=== PATIENT | female | born 1970 | race American Indian/Alaskan Native ===

== ENCOUNTER 2019-12-05 08:45 | Emergency (ER) | payer SELFPAY ==
--- NOTE | 2019-12-05 09:34 | XRay Report ---
CHEST 2 VIEWS INDICATION / CLINICAL INFORMATION: MAIN: Chest Pain . COMPARISON: 03/21/2015 FINDINGS: SUPPORT DEVICES: None. HEART / MEDIASTINUM: No significant abnormality. LUNGS / PLEURA: Interstitial markings in the right lung are slightly prominent. This could represent bronchitis. No focal area of consolidation or pleural effusion noted. Left lung is grossly clear.. Th e lungs are otherwise well aerated and clear. No pleural effusion or pneumothorax identified. No pneu mothorax. ADDITIONAL FINDINGS: Scoliosis of the thoracic spine is present. IMPRESSION: 1. Slight prominence of interstitial markings in the right lung which are nonspecific but could repre sent bronchitis. Please correlate clinically. No other significant finding. Signer Name: Natividad Savage MD Signed: 12/05/2019 9:29 AM Workstation Name: [id number]
[2019-12-05] MEDS ORDERED: IPRATROPIUM 0.02% NEBU 2.5 ML IH ONE (13:23)
[2019-12-05] MEDS ORDERED: ALBUTEROL 2.5 MG/3 ML NEBU IH ONE (13:23)
--- NOTE | 2019-12-05 13:30 | Emergency Department Report ---
ED General Adult HPI - General Chief complaint: Chest Pain Stated complaint: CHEST PAIN,STOMACH PAIN Time Seen by Provider: 12/05/19 13:03 Source: patient Mode of arrival: Ambulatory Limitations: No Limitations - History of Present Illness Initial comments: 49-year-old -[place]ammar[place] female patient with history of diabetes, hypertension, sarcoidosis, hyperlipidemia, and hypothyroidism presents with complaints of cough, chest tightness, shortness of breath, and malaise x 1 week. She states her cough is productive of yellow mucus. She states chest pain that occurs only with cough and states she had some specks of blood with coughing yesterday. She denies any history of DVT/PE, hormones, recent surgery, leg pain/swelling smoking, or history of cancer. She does admit to a 2-hour car drive 1 week ago. Patient states her symptoms started after she visited her aunt in a detention. She also admits to a fever yesterday of 104 that resolved with Tylenol. -: Gradual Severity scale (0 -10): 8 - Related Data Previous Rx's Medication Instructions Recorded Last Taken Type Albuterol INH(or & Nicu Only) 2 puff IH QID PRN #8.5 gram 12/05/19 Unknown Rx [ProAir HFA Inhaler] Benzonatate 200 mg PO TID PRN #30 capsule 12/05/19 Unknown Rx Doxycycline Monohydrate 100 mg PO BID 10 Days #20 capsule 12/05/19 Unknown Rx Allergies Allergy/AdvReac Type Severity Reaction Status Date / Time No Known Allergies Allergy Unverified 12/05/19 08:51 ED Review of Systems ROS: Stated complaint: CHEST PAIN,STOMACH PAIN Other details as noted in HPI Constitutional: chills, fever, malaise. denies: weakness ENT: denies: throat pain Respiratory: cough, shortness of breath. denies: SOB with exertion Cardiovascular: denies: chest pain Gastrointestinal: abdominal pain (Mild epigastric), diarrhea. denies: nausea, vomiting Genitourinary: denies: urgency, frequency, hematuria Neurological: denies: headache Hematological/Lymphatic: denies: easy bleeding, easy bruising ED Past Medical Hx - Past Medical History Previous Medical History?: Yes Hx Hypertension: Yes Hx Diabetes: Yes - Surgical History Past Surgical History?: Yes Additional Surgical History: partial hysterectomy 1992 - Social History Smoking Status: Unknown if ever smoked Substance Use Type: Alcohol - Medications Home Medications: Home Medications Medication Instructions Recorded Confirmed Last Taken Type Albuterol INH(or & Nicu Only) 2 puff IH QID PRN #8.5 gram 12/05/19 Unknown Rx [ProAir HFA Inhaler] Benzonatate 200 mg PO TID PRN #30 capsule 12/05/19 Unknown Rx Doxycycline Monohydrate 100 mg PO BID 10 Days #20 capsule 12/05/19 Unknown Rx ED Physical Exam - General Limitations: No Limitations General appearance: alert, in no apparent distress - Head Head exam: Present: atraumatic, normocephalic - Eye Eye exam: Present: normal appearance - ENT ENT exam: Present: mucous membranes moist - Neck Neck exam: Present: normal inspection, full ROM. Absent: tenderness, lymphadenopathy - Respiratory Respiratory exam: Present: wheezes, rhonchi. Absent: respiratory distress, rales, chest wall tenderness - Cardiovascular Cardiovascular Exam: Present: regular rate, normal rhythm. Absent: systolic murmur, diastolic murmur, rubs, gallop - GI/Abdominal GI/Abdominal exam: Present: soft, normal bowel sounds. Absent: distended, tenderness, guarding, rebound, rigid - Extremities Exam Extremities exam: Present: normal inspection. Absent: calf tenderness (No swelling or edema noted; normal pedal pulses noted bilaterally) - Back Exam Back exam: Present: normal inspection - Neurological Exam Neurological exam: Present: alert, oriented X3 - Psychiatric Psychiatric exam: Present: normal affect, normal mood - Skin Skin exam: Present: warm, dry, intact, normal color. Absent: rash ED Course Vital Signs 12/05/19 12/05/19 08:51 12:51 Temperature 98.6 F Pulse Rate 94 H Respiratory 20 15 Rate Blood Pressure 144/90 O2 Sat by Pulse 97 Oximetry ED Medical Decision Making - Lab Data Lab Results 12/05/19 12/05/19 Range/Units 13:00 13:00 WBC 3.5 L (4.5-11.0) K/mm3 RBC 4.51 (3.65-5.03) M/mm3 Hgb 13.9 (10.1-14.3) gm/dl Hct 40.4 (30.3-42.9) % MCV 90 (79-97) fl MCH 31 (28-32) pg MCHC 34 (30-34) % RDW 14.8 (13.2-15.2) % Plt Count 160 (140-440) K/mm3 Lymph % (Auto) 34.4 (13.4-35.0) % [place] % (Auto) 8.7 H (0.0-7.3) % Eos % (Auto) 1.6 (0.0-4.3) % Baso % (Auto) 1.2 (0.0-1.8) % Lymph # 1.2 (1.2-5.4) K/mm3 [place] # 0.3 (0.0-0.8) K/mm3 Eos # 0.1 (0.0-0.4) K/mm3 Baso # 0.0 (0.0-0.1) K/mm3 Seg Neutrophils % 54.1 (40.0-70.0) % Seg Neutrophils # 1.9 (1.8-7.7) K/mm3 Sodium 137 (137-145) mmol/L Potassium 3.2 L (3.6-5.0) mmol/L Chloride 94.8 L (98-107) mmol/L Carbon Dioxide 27 (22-30) mmol/L Anion Gap 18 mmol/L BUN 10 (7-17) mg/dL Creatinine 1.2 (0.7-1.2) mg/dL Estimated GFR 57 ml/min BUN/Creatinine Ratio 8 % Glucose 192 H (65-100) mg/dL Calcium 9.4 (8.4-10.2) mg/dL Total Bilirubin 0.40 (0.1-1.2) mg/dL AST 34 (5-40) units/L ALT 20 (7-56) units/L Alkaline Phosphatase 64 (35-129) units/L Troponin T < 0.010 (0.00-0.029) ng/mL Total Protein 8.0 (6.3-8.2) g/dL Albumin 4.4 (3.9-5) g/dL Albumin/Globulin Ratio 1.2 % - Radiology Data Radiology results: report reviewed CHEST 2 VIEWS INDICATION / CLINICAL INFORMATION: MAIN: Chest Pain . COMPARISON: 03/21/2015 FINDINGS: SUPPORT DEVICES: None. HEART / MEDIASTINUM: No significant abnormality. LUNGS / PLEURA: Interstitial markings in the right lung are slightly prominent. This could represent bronchitis. No focal area of consolidation or pleural effusion noted. Left lung is grossly clear.. The lungs are otherwise well aerated and clear. No pleural effusion or pneumothorax identified. No pneumothorax. ADDITIONAL FINDINGS: Scoliosis of the thoracic spine is present. IMPRESSION: 1. Slight prominence of interstitial markings in the right lung which are nonspecific but could represent bronchitis. Please correlate clinically. No other significant finding. - Medical Decision Making 49-year-old -[place]ammar[place] female patient with history of diabetes, hypertension, sarcoidosis, hyperlipidemia, and hypothyroidism presents with complaints of cough, chest tightness, shortness of breath, and malaise x 1 week. Patient is afebrile and non-tachycardic with a normal pulse ox. CBC shows normal white count. Troponin is normal. EKG is normal. Chest x-ray shows increased interstitial markings in the right lung that may represent bronchitis. Patient is noted to have wheezing and diffuse rhonchi bilaterally on exam. Patient's symptoms and presentation are consistent with chest x-ray findings of bronchitis. Wheezing improved after hour-long nebulizer treatment. Patient is nontoxic-appearing and stable for discharge home. Prescription for doxycycline. Recommend follow-up with primary care provider within 3 to 5 days. Discussed strict return precautions in detail with patient who verbalizes understanding. Critical care attestation.: If time is entered above; I have spent that time in minutes in the direct care of this critically ill patient, excluding procedure time. ED Disposition Clinical Impression: Acute bacterial bronchitis Disposition: DC-01 TO HOME OR SELFCARE Is pt being admited?: No Condition: Stable Instructions: Acute Bronchitis (ED) Prescriptions: Benzonatate 200 mg PO TID PRN #30 capsule PRN Reason: Cough Doxycycline Monohydrate 100 mg PO BID 10 Days #20 capsule Albuterol INH(or & Nicu Only) [ProAir HFA Inhaler] 2 puff IH QID PRN #8.5 gram PRN Reason: Wheezing Referrals: STEVE CHIRINOS MD [Primary Care Provider] - 3-5 Days
[2019-12-05 13:38] LABS: Basophils % (Auto) 1.2 % (0.0-1.8); Eosinophils # (Auto) 0.1 K/mm3 (0.0-0.4); Eosinophils % (Auto) 1.6 % (0.0-4.3); Hematocrit 40.4 % (30.3-42.9); Hemoglobin 13.9 gm/dl (10.1-14.3); Lymphocytes # (Auto) 1.2 K/mm3 (1.2-5.4); Lymphocytes % (Auto) 34.4 % (13.4-35.0); Mean Corpuscular HGB Conc 34 % (30-34); Mean Corpuscular Volume 90 fl (79-97); Monocytes # (Auto) 0.3 K/mm3 (0.0-0.8); Monocytes % (Auto) 8.7 % (0.0-7.3); Platelet Count 160 K/mm3 (140-440); Red Blood Count 4.51 M/mm3 (3.65-5.03); Red Cell Distribution Width 14.8 % (13.2-15.2)
[2019-12-05 14:05] LABS: Alanine Aminotransferase 20 units/L (7-56); Albumin 4.4 g/dL (3.9-5); BUN/Creatinine Ratio 8; Blood Urea Nitrogen 10 mg/dL (7-17); Calcium 9.4 mg/dL (8.4-10.2); Hemolysis Index 20
[2019-12-05 15:34] VITALS: BP 138/88
== END 2019-12-05 15:34 | disposition home or self-care (01) ==
LOC: EDSEX → ED 08:45
DX: J20.8 Acute bronchitis due to other specified organisms (principal); I10 Essential (primary) hypertension; E11.9 Type 2 diabetes mellitus without complications; Z90.710 Acquired absence of both cervix and uterus; Z79.899 Other long term (current) drug therapy
CPT/HCPCS: 36415; 71046; 80053; 84484; 85025; 93005; 93010; 94640; 94644

== ENCOUNTER 2020-07-04 05:04 | Observation (INO) | payer BC ==
--- NOTE | 2020-07-04 05:56 | XRay Report ---
CHEST 1 VIEW INDICATION: CP. COMPARISON: 04/12/2020. FINDINGS: Support devices: None. Heart: Stable cardiomegaly. Lungs/Pleura: Mild bilateral opacity. Additional findings: None. IMPRESSION: Cardiomegaly with mild bilateral opacity which may represent edema. Signer Name: Wayne Mcnamara MD Signed: 07/04/2020 5:52 AM Workstation Name: [id number]
[2020-07-04 06:15] LABS: Basophils % (Auto) 0.4 % (0.0-1.8); Eosinophils # (Auto) 0.1 K/mm3 (0.0-0.4); Eosinophils % (Auto) 0.8 % (0.0-4.3); Hematocrit 39.2 % (30.3-42.9); Hemoglobin 12.7 gm/dl (10.1-14.3); Lymphocytes # (Auto) 1.8 K/mm3 (1.2-5.4); Mean Corpuscular HGB Conc 33 % (30-34); Mean Corpuscular Volume 93 fl (79-97); Monocytes # (Auto) 0.4 K/mm3 (0.0-0.8); Platelet Count 228 K/mm3 (140-440); Red Blood Count 4.22 M/mm3 (3.65-5.03); Red Cell Distribution Width 15.1 % (13.2-15.2)
[2020-07-04 06:27] LABS: Alanine Aminotransferase 16 units/L (7-56); Albumin 3.8 g/dL (3.9-5); BUN/Creatinine Ratio 21; Blood Urea Nitrogen 17 mg/dL (7-17); Calcium 8.9 mg/dL (8.4-10.2); Hemolysis Index 5
[2020-07-04] MEDS ORDERED: FUROSEMIDE 40 MG/4 ML INJ IV ONE (06:29)
--- NOTE | 2020-07-04 06:34 | Emergency Department Report ---
ED Shortness of Breath HPI - General Chief Complaint: Dyspnea/Respdistress Stated Complaint: YANCI Time Seen by Provider: 07/04/20 06:14 Source: patient, EMS, old records reviewed Mode of arrival: Stretcher Limitations: No Limitations - History of Present Illness Initial Comments: 50-year-old female the past medical history sarcoidosis, nonischemic cardio myopathy with a EF of 25 to 30%, diabetes, hypertension presents to the hospital complaints sudden onset of shortness of breath while sleeping at 1:30 AM. Patient has room air saturation 89% which improved to 100% on nonrebreather and patient reports feeling better with oxygen. Patient also reports intermittent wheezing with increased albuterol inhaler use. No chest pain reported or leg edema reported. Patient having a cough occasionally productive of sputum. She denies leg edema or calf tenderness. Patient is compliant with her medications was restarted on metoprolol. Patient does not have her list of medications but does think that she takes a diuretic. Patient denies increased salt or fluid intake. No reports of fever. side panel padder Dr. Carranza, PMD Dr. Rios Previous medical record review patient was admitted here for CHF exacerbation in March 2020. Had a cardiac cath during that admission showing EF of 25 to 30% and no coronary artery stenosis. - Related Data Home Medications Medication Instructions Recorded Confirmed Last Taken Glimepiride [Amaryl] 4 mg PO BID 04/13/20 04/13/20 Unknown Ibuprofen [Motrin 800 MG tab] 800 mg PO TID PRN 04/13/20 04/13/20 Unknown Levothyroxine [Synthroid] 88 mcg PO QAM 04/13/20 04/13/20 Unknown Lovastatin 200 mg PO HS 04/13/20 04/13/20 Unknown Meloxicam [Mobic] 7.5 mg PO DAILY 04/13/20 04/13/20 Unknown hydroCHLOROthiazide 12.5 mg PO DAILY 04/13/20 04/13/20 Unknown [Hydrochlorothiazide] lisinopriL [Zestril] 20 mg PO QDAY 04/13/20 04/13/20 Unknown metFORMIN [Glucophage] 500 mg PO BID 04/13/20 04/13/20 Unknown methOCARBAMOL [Robaxin TAB] 750 mg PO TID 04/13/20 04/13/20 Unknown Previous Rx's Medication Instructions Recorded Last Taken Type Albuterol Mdi (or & Nicu Only) 2 puff IH QID PRN #8.5 gram 12/05/19 Unknown Rx [ProAir HFA Inhaler] Benzonatate 200 mg PO TID PRN #30 capsule 12/05/19 Unknown Rx Doxycycline Monohydrate 100 mg PO BID 10 Days #20 capsule 12/05/19 Unknown Rx Famotidine [Pepcid] 20 mg PO BID 7 Days #14 tablet 12/05/19 Unknown Rx levoFLOXacin [Levaquin TAB] 500 mg PO QDAY #5 tablet 04/17/20 Unknown Rx Allergies Allergy/AdvReac Type Severity Reaction Status Date / Time No Known Allergies Allergy Verified 04/12/20 10:17 ED Review of Systems ROS: Stated complaint: YANCI Other details as noted in HPI Comment: All other systems reviewed and negative ED Past Medical Hx - Past Medical History Previous Medical History?: Yes Hx Hypertension: Yes Hx Congestive Heart Failure: Yes Hx Diabetes: Yes Additional medical history: Sarcoidosis - Surgical History Past Surgical History?: Yes Additional Surgical History: partial hysterectomy 1992 - Social History Smoking Status: Never Smoker - Medications Home Medications: Home Medications Medication Instructions Recorded Confirmed Last Taken Type Albuterol Mdi (or & Nicu Only) 2 puff IH QID PRN #8.5 gram 12/05/19 04/13/20 Unknown Rx [ProAir HFA Inhaler] Benzonatate 200 mg PO TID PRN #30 capsule 12/05/19 04/13/20 Unknown Rx Doxycycline Monohydrate 100 mg PO BID 10 Days #20 capsule 12/05/19 04/13/20 Unknown Rx Famotidine [Pepcid] 20 mg PO BID 7 Days #14 tablet 12/05/19 04/13/20 Unknown Rx Glimepiride [Amaryl] 4 mg PO BID 04/13/20 04/13/20 Unknown History Ibuprofen [Motrin 800 MG tab] 800 mg PO TID PRN 04/13/20 04/13/20 Unknown History Levothyroxine [Synthroid] 88 mcg PO QAM 04/13/20 04/13/20 Unknown History Lovastatin 200 mg PO HS 04/13/20 04/13/20 Unknown History Meloxicam [Mobic] 7.5 mg PO DAILY 04/13/20 04/13/20 Unknown History hydroCHLOROthiazide 12.5 mg PO DAILY 04/13/20 04/13/20 Unknown History [Hydrochlorothiazide] lisinopriL [Zestril] 20 mg PO QDAY 04/13/20 04/13/20 Unknown History metFORMIN [Glucophage] 500 mg PO BID 04/13/20 04/13/20 Unknown History methOCARBAMOL [Robaxin TAB] 750 mg PO TID 04/13/20 04/13/20 Unknown History levoFLOXacin [Levaquin TAB] 500 mg PO QDAY #5 tablet 04/17/20 Unknown Rx ED Physical Exam - General Limitations: No Limitations - Other Other exam information: General: No acute distress Head: Atraumatic Eyes: normal appearance ENT: Moist mucous membranes Neck: Normal appearance, no midline tenderness Chest: Bilateral crackles, breathing comfortably on nonrebreather CV: Regular rate and rhythm Abdomen: Soft, normal bowel sounds, nontender, nondistended, no rebound or guarding Back: Normal inspection Extremity: Normal inspection, full range of motion, no calf tenderness or leg edema Neuro: Alert O x 3, no facial asymmetry, speech clear, no gross motor sensory deficit Psych: Appropriate behavior Skin: No rash ED Course Vital Signs 07/04/20 07/04/20 05:26 06:05 Temperature 97.6 F Pulse Rate 114 H Respiratory 24 24 Rate Blood Pressure 177/98 [Right] O2 Sat by Pulse 100 100 Oximetry ED Medical Decision Making - Lab Data Result diagrams: 07/04/20 05:42 07/04/20 05:42 Lab Results 07/04/20 07/04/20 Range/Units 05:42 05:42 WBC 7.7 (4.5-11.0) K/mm3 RBC 4.22 (3.65-5.03) M/mm3 Hgb 12.7 (10.1-14.3) gm/dl Hct 39.2 (30.3-42.9) % MCV 93 (79-97) fl MCH 30 (28-32) pg MCHC 33 (30-34) % RDW 15.1 (13.2-15.2) % Plt Count 228 (140-440) K/mm3 Lymph % (Auto) 23.0 (13.4-35.0) % [place] % (Auto) 5.0 (0.0-7.3) % Eos % (Auto) 0.8 (0.0-4.3) % Baso % (Auto) 0.4 (0.0-1.8) % Lymph # 1.8 (1.2-5.4) K/mm3 [place] # 0.4 (0.0-0.8) K/mm3 Eos # 0.1 (0.0-0.4) K/mm3 Baso # 0.0 (0.0-0.1) K/mm3 Seg Neutrophils % 70.8 H (40.0-70.0) % Seg Neutrophils # 5.4 (1.8-7.7) K/mm3 Sodium 140 (137-145) mmol/L Potassium 4.0 (3.6-5.0) mmol/L Chloride 103.1 (98-107) mmol/L Carbon Dioxide 23 (22-30) mmol/L Anion Gap 18 mmol/L BUN 17 (7-17) mg/dL Creatinine 0.8 (0.6-1.2) mg/dL Estimated GFR > 60 ml/min BUN/Creatinine Ratio 21 % Glucose 246 H (65-100) mg/dL Calcium 8.9 (8.4-10.2) mg/dL Total Bilirubin 0.20 (0.1-1.2) mg/dL AST 21 (5-40) units/L ALT 16 (7-56) units/L Alkaline Phosphatase 67 (35-129) units/L Troponin T < 0.010 (0.00-0.029) ng/mL NT-Pro-B Natriuret Pep 1978 H (0-900) pg/mL Total Protein 6.8 (6.3-8.2) g/dL Albumin 3.8 L (3.9-5) g/dL Albumin/Globulin Ratio 1.3 % - EKG Data -: EKG Interpreted by Ms EKG shows normal: sinus rhythm, ST-T waves (No STEMI) Rate: tachycardia (107) - EKG Data When compared to previous EKG there are: no significant change - Radiology Data Radiology results: report reviewed CHEST 1 VIEW INDICATION: CP. COMPARISON: 04/12/2020. FINDINGS: Support devices: None. Heart: Stable cardiomegaly. Lungs/Pleura: Mild bilateral opacity. Additional findings: None. IMPRESSION: Cardiomegaly with mild bilateral opacity which may represent edema. - Medical Decision Making Patient presents to the hospital with CHF exacerbation due to unknown cause. Patient received IV Lasix. She does not endorse chest pain. No ischemic or acute findings on EKG. Troponin negative. Patient will be admitted to the hospitalist service with cardiology consultation Critical Care Time: No Critical care attestation.: If time is entered above; I have spent that time in minutes in the direct care of this critically ill patient, excluding procedure time. ED Disposition Clinical Impression: CHF exacerbation, Hypoxia, Nonischemic cardiomyopathy Disposition: OP ADMIT IP TO THIS HOSP Is pt being admited?: Yes Condition: Stable Time of Disposition: 07:11 (Dr barrera/hospitalist)
[2020-07-04] MEDS ORDERED: ALBUTEROL 2.5 MG/3 ML NEBU IH PRN (07:41)
[2020-07-04] MEDS ORDERED: POTASSIUM CHLORIDE ER 20 MEQ TAB PO ONE (08:00)
--- NOTE | 2020-07-04 08:25 | History and Physical Report ---
History of Present Illness Date of examination: 07/04/20 Date of admission: 07/04/20 07:13 Chief complaint: dyspnea History of present illness: This is a 51-year-old female with sarcoidosis, nonischemic cardiomyopathy with a EF of 25 to 30%, DM, HTN, GERD, and hypothyroidism who presents to the emergency department with complaints of sudden onset of shortness of breath while sleeping at 0130. She experienced intermittent wheezing and used her albuterol inhaler w ith no improvement. 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 In the emergency department her SPO2 on room air was 89% which improved to 100% with a nonrebreather. She reports compliance with her medications. At the time of my exam the patient was on an Ventimask. She reports having coughed 3 times with EMS with white phlegm. She denies any fevers, nausea or vomiting or diarrhea, recent weight loss, hemoptysis, night sweats, or chills. She does report generalized fatigue and decreased energy over the past couple months. She denies any recent travel, sick contacts, or exposure to known COVID-19. Patient states she was recently tested negative for COVID-19 in March 2020 during her last admission. Of note she had a left heart cath 04/17 which showed normal coronaries without any evidence of CAD or stents with a EF of ~25% and is seen by Dr. Carranza outpatient. Work-up in the emergency department reveals cardiomegaly with bilateral mild opacity which may represent pulmonary edema, troponin less than 0.010 and an elevated BNP of 1978. In the emergency department she received 60 mg of Lasix which within subjective improvement in her symptoms. Cardiology was consulted in the emergency department she sees Dr. Carranza outpatient. She is being admitted to the hospitalist service for acute CH F exacerbation. Prior visits reviewed, medications reconciled, and advanced care planning was done the emergency department at bedside Past History Past Medical History: diabetes, GERD, heart failure, hypertension, hypothyroidism, sarcoidosis Past Surgical History: cholecystectomy (2010), hysterectomy (1995), Other ([facility] (2019)) Social history: single, lives with family, full code. denies: smoking, alcohol abuse, prescription drug abuse, IV drug use Family history: diabetes, stroke Medications and Allergies Allergies Allergy/AdvReac Type Severity Reaction Status Date / Time No Known Allergies Allergy Verified 04/12/20 10:17 Home Medications Medication Instructions Recorded Confirmed Last Taken Type Albuterol Mdi (or & Nicu Only) 2 puff IH QID PRN #8.5 gram 12/05/19 07/04/20 Unknown Rx [ProAir HFA Inhaler] Glimepiride [Amaryl] 4 mg PO BID 04/13/20 07/04/20 Unknown History Ibuprofen [Motrin 800 MG tab] 800 mg PO TID PRN 04/13/20 07/04/20 Unknown History Levothyroxine [Synthroid] 88 mcg PO QAM 04/13/20 07/04/20 Unknown History Lovastatin 200 mg PO HS 04/13/20 07/04/20 Unknown History hydroCHLOROthiazide 12.5 mg PO DAILY 04/13/20 07/04/20 Unknown History [Hydrochlorothiazide] metFORMIN [Glucophage] 500 mg PO BID 04/13/20 07/04/20 Unknown History methOCARBAMOL [Robaxin TAB] 750 mg PO TID 04/13/20 07/04/20 Unknown History Metoprolol [Lopressor] 25 mg PO DAILY 07/04/20 07/04/20 Unknown History Active Meds: Active Medications Albuterol (Proventil) 2.5 mg IH Q4HRT PRN PRN Reason: Shortness Of Breath Atorvastatin Calcium (Atorvastatin) 10 mg PO QHS [facility] Famotidine (Pepcid) 20 mg PO BID [facility] Furosemide (Lasix) 40 mg IV QDAY [facility] Levothyroxine Sodium (Synthroid) 88 mcg PO QAM@0600 [facility] Lisinopril (Zestril) 20 mg PO QDAY [facility] Review of Systems Constitutional: fatigue, no weight loss, no weight gain, no fever, no chills, no sweats, no night sweats, no anorexia, no weakness, no malaise, no lethargy, no chronic headaches Ears, nose, mouth and throat: nasal congestion, nasal discharge, post-nasal drip, no ear pain, no ear discharge, no tinnitis, no sinus pressure, no sinus pain, no epistaxis, no bleeding gums, no mouth pain, no sore throat, no headache Cardiovascular: orthopnea, palpitations, edema, shortness of breath, high blood pressure, no chest pain, no syncope, no lightheadedness, no leg edema Respiratory: cough with sputum, shortness of breath, congestion, wheezing, no hemoptysis Gastrointestinal: no abdominal pain, no nausea, no vomiting, no diarrhea, no constipation, no change in bowel habits, no hematemesis, no coffee ground emesis, no BRBPR, no melena, no hematochezia, no loss of appetite Genitourinary Female: hot flashes, no pelvic pain, no flank pain, no urinary frequency, no urgency, no stress incontinence, no post void dribbling, no hematuria Menstruation: post hysterectomy Rectal: no pain, no incontinence, no bleeding, no hemorrhoids Musculoskeletal: no neck stiffness, no neck pain, no shooting arm pain, no arm numbness/tingling, no low back pain, no shooting leg pain, no leg numbness/tingling, no redness of joints, no frequent falls Integumentary: no rash, no pruritis, no redness, no sores, no wounds Neurological: no head injury, no transient paralysis, no paralysis, no weakness, no parathesias, no numbness, no tingling, no seizures, no syncope, no tremors, no vertigo, no headaches, no convulsions Psychiatric: no anxiety, no memory loss, no change in sleep habits, no insomnia, no hypersomnia, no suicidal ideation Endocrine: heat intolerance, no cold intolerance, no excessive thirst, no polydipsia, no polyuria, no nocturia, no excessive sweating, no flushing, no weight change, no increase in ring/shoe/hat size, no high blood sugars Hematologic/Lymphatic: no easy bruising, no easy bleeding Allergic/Immunologic: wheezing, no urticaria, no allergic rhinitis, no persistent infections Exam - Constitutional Vitals: Temp Pulse Resp BP Pulse Ox 98.2 F 107 H 12 145/58 100 07/04/20 08:11 07/04/20 08:11 07/04/20 08:11 07/04/20 08:11 07/04/20 08:11 General appearance: Present: no acute distress, well-nourished - EENT Eyes: Present: PERRL, EOM intact ENT: hearing intact, clear oral mucosa - Neck Neck: Present: supple, normal ROM - Respiratory Respiratory effort: normal Respiratory: bilateral: other (crackles) - Cardiovascular Rhythm: regular Heart Sounds: Present: S1 & S2. Absent: systolic murmur, diastolic murmur - Extremities Extremities: no ischemia, pulses intact, pulses symmetrical, No edema, normal temperature, normal color, Full ROM Peripheral Pulses: within normal limits - Abdominal General gastrointestinal: Present: soft, non-tender, non-distended, normal bowel sounds - Integumentary Integumentary: Present: clear, warm, dry - Musculoskeletal Musculoskeletal: strength equal bilaterally - Psychiatric Psychiatric: appropriate mood/affect, memory intact, cooperative - Neurologic Neurologic: CNII-XII intact, no focal deficits, moves all extremities - Allied Health Allied health notes reviewed: nursing HEART Score - HEART Score History: Slightly suspicious EKG: Normal Age: 45-65 Risk factors: 1-2 risk factors Troponin: Troponin T < 0.010 ng/mL (0.00-0.029) 07/04/20 05:42 Troponin: < normal limit HEART Score: 2 Results - Labs CBC & Chem 7: 07/04/20 05:42 07/04/20 05:42 Labs: Laboratory Last Values WBC 7.7 K/mm3 (4.5-11.0) 07/04/20 05:42 RBC 4.22 M/mm3 (3.65-5.03) 07/04/20 05:42 Hgb 12.7 gm/dl (10.1-14.3) 07/04/20 05:42 Hct 39.2 % (30.3-42.9) 07/04/20 05:42 MCV 93 fl (79-97) 07/04/20 05:42 MCH 30 pg (28-32) 07/04/20 05:42 MCHC 33 % (30-34) 07/04/20 05:42 RDW 15.1 % (13.2-15.2) 07/04/20 05:42 Plt Count 228 K/mm3 (140-440) 07/04/20 05:42 Lymph % (Auto) 23.0 % (13.4-35.0) 07/04/20 05:42 [place] % (Auto) 5.0 % (0.0-7.3) 07/04/20 05:42 Eos % (Auto) 0.8 % (0.0-4.3) 07/04/20 05:42 Baso % (Auto) 0.4 % (0.0-1.8) 07/04/20 05:42 Lymph # 1.8 K/mm3 (1.2-5.4) 07/04/20 05:42 Bel[place]ami # 0.4 K/mm3 (0.0-0.8) 07/04/20 05:42 Eos # 0.1 K/mm3 (0.0-0.4) 07/04/20 05:42 Baso # 0.0 K/mm3 (0.0-0.1) 07/04/20 05:42 Seg Neutrophils % 70.8 % (40.0-70.0) H 07/04/20 05:42 Seg Neutrophils # 5.4 K/mm3 (1.8-7.7) 07/04/20 05:42 Sodium 140 mmol/L (137-145) 07/04/20 05:42 Potassium 4.0 mmol/L (3.6-5.0) 07/04/20 05:42 Chloride 103.1 mmol/L (98-107) 07/04/20 05:42 Carbon Dioxide 23 mmol/L (22-30) 07/04/20 05:42 Anion Gap 18 mmol/L 07/04/20 05:42 BUN 17 mg/dL (7-17) 07/04/20 05:42 Creatinine 0.8 mg/dL (0.6-1.2) 07/04/20 05:42 Estimated GFR > 60 ml/min 07/04/20 05:42 BUN/Creatinine Ratio 21 % 07/04/20 05:42 Glucose 246 mg/dL (65-100) H 07/04/20 05:42 Calcium 8.9 mg/dL (8.4-10.2) 07/04/20 05:42 Total Bilirubin 0.20 mg/dL (0.1-1.2) 07/04/20 05:42 AST 21 units/L (5-40) 07/04/20 05:42 ALT 16 units/L (7-56) 07/04/20 05:42 Alkaline Phosphatase 67 units/L (35-129) 07/04/20 05:42 Troponin T < 0.010 ng/mL (0.00-0.029) 07/04/20 05:42 NT-Pro-B Natriuret Pep 1978 pg/mL (0-900) H 07/04/20 05:42 Total Protein 6.8 g/dL (6.3-8.2) 07/04/20 05:42 Albumin 3.8 g/dL (3.9-5) L 07/04/20 05:42 Albumin/Globulin Ratio 1.3 % 07/04/20 05:42 - Imaging and Cardiology Chest x-ray: report reviewed, image reviewed - Diagnostic Impressions Diagnostic Impressions: 07/04 CXR shows cardiomegaly with mild bilateral opacity which may represent edema. Assessment and Plan VTE prophylaxis?: Chemical, Mechanical Plan of care discussed with patient/family: Yes - Patient Problems (1) Acute HFrEF (heart failure with reduced ejection fraction) Current Visit: Yes Status: Acute Plan to address problem: -07/04 CXR shows mild bilateral density which may be edema -Received 60 mg Lasix x1 in the emergency department -Admit BNP 1977 -Started on IV Lasix -Trend BMP and replete potassium as needed -Cardiology consulted -04/17/2020 left heart cath showed normal coronaries with no evidence of CAD and a EF of ~25% -03/2020 TTE showed EF of 25 to 30% with mild dilation of the left ventricle (2) Acute respiratory distress Current Visit: Yes Status: Acute Plan to address problem: -On presentation SPO2 89% on room air -Placed on nonrebreather in the emergency department now weaned to Ventimask -Supplemental oxygen as needed -Wean oxygenation as tolerated -Pulmonary hygiene -Continuous SPO2 monitoring (3) Diabetes Current Visit: Yes Status: Chronic Plan to address problem: -Hemoglobin A1c pending -CC cardiac diet -Started home antidiabetic regimen (metformin and Amaryl) -Accu-Cheks AC at bedtime -Hypoglycemia protocol (4) Hypertension Current Visit: Yes Status: Chronic Qualifiers: Hypertension type: essential hypertension Qualified Code(s): I10 - Essential (primary) hypertension Plan to address problem: -Blood pressure monitor per protocol -Restarted home lisinopril -PRN labetalol for systolic blood pressure greater than 160 (5) Sarcoidosis Current Visit: Yes Status: Chronic Plan to address problem: -Supportive care -Pulmonary consulted (6) GERD (gastroesophageal reflux disease) Current Visit: Yes Status: Chronic Plan to address problem: Restarted on home Pepcid (7) Hypothyroidism Current Visit: Yes Status: Chronic Plan to address problem: Restarted on home levothyroxine (8) DVT prophylaxis Current Visit: No Status: Acute Plan to address problem: -SCDs to bilateral lower extremities while in bed -Lovenox subcu (9) Full code status Current Visit: Yes Status: Acute
[2020-07-04] MEDS ORDERED: FUROSEMIDE 40 MG/4 ML INJ IV SCH (10:00)
[2020-07-04] MEDS ORDERED: LISINOPRIL 20 MG TAB PO SCH (10:00)
[2020-07-04] MEDS ORDERED: hydroCHLOROthiazide 12.5 MG CAP PO SCH (10:00)
[2020-07-04] MEDS: FAMOTIDINE 20 MG TAB PO SCH ×2 (10:14→21:38)
[2020-07-04] MEDS: LEVOTHYROXINE 88 MCG TAB PO SCH (10:14)
[2020-07-04] MEDS: metFORMIN 500 MG TAB PO SCH ×2 (10:14→17:40)
[2020-07-04] MEDS: GLIMEPIRIDE 4 MG TAB PO SCH ×2 (10:14→17:40)
--- NOTE | 2020-07-04 10:27 | Consultation ---
History of Present Illness Consult date: 07/04/20 Requesting physician: SALMA MONTELONGO Consult reason: congestive heart failure History of present illness: The pt is a 50 YO female with a past medical history of NICMP, HFrEF, reported pulmonary sarcoidosis, HTN, DM. She is followed in our office by Dr. Carranza. She presented with c/o sudden onset of shortness of breath while sleeping at 1:30 AM. Patient also reports intermittent wheezing with increased albuterol inhaler use for the past several days. She denies any chest pain, palpitations, edema, n/v, diaphoresis, dizziness or syncope. She reports compliance with her home medication regimen and HF diet. 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 Her PCP is Dr. Rios. tte done 03/2020 showed EF 25-30%, LV mildly dilated. LHC done 04/17/2020 showed normal coronaries, no CAD or prior stenting noted, EF ~25%. Past History Past Medical History: diabetes, GERD, heart failure, hypertension, hypothyroidism, sarcoidosis Past Surgical History: cholecystectomy (2010), hysterectomy (1995), Other ([facility] (2019)) Social history: single, lives with family, full code. denies: smoking, alcohol abuse, prescription drug abuse, IV drug use Family history: diabetes, stroke Medications and Allergies Allergies Allergy/AdvReac Type Severity Reaction Status Date / Time No Known Allergies Allergy Verified 04/12/20 10:17 Home Medications Medication Instructions Recorded Confirmed Last Taken Type Albuterol Mdi (or & Nicu Only) 2 puff IH QID PRN #8.5 gram 12/05/19 07/04/20 Unknown Rx [ProAir HFA Inhaler] Glimepiride [Amaryl] 4 mg PO BID 04/13/20 07/04/20 Unknown History Ibuprofen [Motrin 800 MG tab] 800 mg PO TID PRN 04/13/20 07/04/20 Unknown History Levothyroxine [Synthroid] 88 mcg PO QAM 04/13/20 07/04/20 Unknown History Lovastatin 200 mg PO HS 04/13/20 07/04/20 Unknown History hydroCHLOROthiazide 12.5 mg PO DAILY 04/13/20 07/04/20 Unknown History [Hydrochlorothiazide] metFORMIN [Glucophage] 500 mg PO BID 04/13/20 07/04/20 Unknown History methOCARBAMOL [Robaxin TAB] 750 mg PO TID 04/13/20 07/04/20 Unknown History Metoprolol [Lopressor] 25 mg PO DAILY 07/04/20 07/04/20 Unknown History Active Meds: Active Medications Albuterol (Proventil) 2.5 mg IH Q4HRT PRN PRN Reason: Shortness Of Breath Atorvastatin Calcium (Atorvastatin) 10 mg PO QHS [facility] Enoxaparin Sodium (Enoxaparin) 40 mg SUB-Q QDAY@2200 [facility]; Protocol Famotidine (Pepcid) 20 mg PO BID [facility] Last Admin: 07/04/20 10:14 Dose: 20 mg Documented by: Furosemide (Lasix) 40 mg IV QDAY [facility] Last Admin: 07/04/20 10:14 Dose: 40 mg Documented by: Glimepiride (Amaryl) 4 mg PO BIDDIAB [facility] Last Admin: 07/04/20 10:14 Dose: 4 mg Documented by: Labetalol HCl (Labetalol) 10 mg IV Q6HR PRN PRN Reason: Hypertension Levothyroxine Sodium (Synthroid) 88 mcg PO QAM@0600 [facility] Last Admin: 07/04/20 10:14 Dose: 88 mcg Documented by: Lisinopril (Zestril) 20 mg PO QDAY [facility] Last Admin: 07/04/20 10:15 Dose: 20 mg Documented by: Metformin HCl (Glucophage) 500 mg PO BIDDIAB [facility] Last Admin: 07/04/20 10:14 Dose: 500 mg Documented by: Oxycodone/Acetaminophen (Percocet 5/325) 1 tab PO Q6H PRN PRN Reason: Pain, Moderate (4-6) Review of Systems Constitutional: no weight loss, no weight gain, no fever, no chills, no sweats Ears, nose, mouth and throat: no ear pain, no nose pain, no sinus pressure, no sinus pain Cardiovascular: orthopnea, shortness of breath, dyspnea on exertion, no chest pain, no palpitations, no rapid/irregular heart beat, no edema, no syncope, no lightheadedness, no leg edema Respiratory: cough, shortness of breath, dyspnea on exertion, wheezing, no congestion, no pain on inspiration Gastrointestinal: no abdominal pain, no nausea, no vomiting, no diarrhea, no constipation, no change in bowel habits Genitourinary Female: no pelvic pain, no flank pain, no dysuria, no urinary frequency, no urgency Musculoskeletal: no neck stiffness, no neck pain, no shooting arm pain, no arm numbness/tingling, no low back pain, no shooting leg pain Integumentary: no rash, no pruritis, no redness, no sores, no wounds Neurological: no head injury, no paralysis, no weakness, no parathesias, no numbness, no tingling, no seizures, no syncope Psychiatric: no anxiety Endocrine: no cold intolerance, no heat intolerance Hematologic/Lymphatic: no easy bruising, no easy bleeding Allergic/Immunologic: no urticaria Physical Examination Vital Signs Temp Pulse Resp BP Pulse Ox 97.6 F 114 H 24 177/98 100 07/04/20 05:26 07/04/20 05:26 07/04/20 05:26 07/04/20 05:26 07/04/20 05:26 General appearance: no acute distress HEENT: Positive: PERRL, Normocephaly, Mucus Membranes Moist Neck: Positive: neck supple, trachea midline Cardiac: Positive: Reg Rate and Rhythm, S1/S2 Lungs: Positive: Decreased Breath Sounds, Oxygen Neuro: Positive: Grossly Intact Abdomen: Negative: Tender Skin: Negative: Rash Musculoskeletal: No Pain Extremities: Absent: edema Results 07/04/20 05:42 07/04/20 05:42 Cardiac Enzymes 07/04/20 Range/Units 05:42 AST 21 (5-40) units/L CBC 07/04/20 Range/Units 05:42 WBC 7.7 (4.5-11.0) K/mm3 RBC 4.22 (3.65-5.03) M/mm3 Hgb 12.7 (10.1-14.3) gm/dl Hct 39.2 (30.3-42.9) % Plt Count 228 (140-440) K/mm3 Lymph # 1.8 (1.2-5.4) K/mm3 Sebastian # 0.4 (0.0-0.8) K/mm3 Eos # 0.1 (0.0-0.4) K/mm3 Baso # 0.0 (0.0-0.1) K/mm3 Comprehensive Metabolic Panel 07/04/20 Range/Units 05:42 Sodium 140 (137-145) mmol/L Potassium 4.0 (3.6-5.0) mmol/L Chloride 103.1 (98-107) mmol/L Carbon Dioxide 23 (22-30) mmol/L BUN 17 (7-17) mg/dL Creatinine 0.8 (0.6-1.2) mg/dL Glucose 246 H (65-100) mg/dL Calcium 8.9 (8.4-10.2) mg/dL AST 21 (5-40) units/L ALT 16 (7-56) units/L Alkaline Phosphatase 67 (35-129) units/L Total Protein 6.8 (6.3-8.2) g/dL Albumin 3.8 L (3.9-5) g/dL - Imaging and Cardiology Echo: report reviewed (03/2020 showed EF 25-30%, LV mildly dilated. ) Cardiac cath: report reviewed (04/17/2020 showed normal coronaries, no CAD or prior stenting noted, EF ~25%. ) EKG: report reviewed, image reviewed EKG interpretations - Telemetry EKG Rhythm: Sinus Rhythm - EKG Sinus rhythms and dysrhythmias: sinus rhythm Repolarization changes or abnormalities: nonspecific abnormality, ST segment, and/or T wave Assessment and Plan Increase IV lasix to 40mg BID. Optimize HR - increase lopressor dosage to 50mg BID. Resume home losartan. Consider addition of aldactone if BPs permit. Pt reports h/o pulmonary sarcoidosis and increased wheezing over the past several days - recommend pulmonary consultation per primary team. Will follow. The patient has been seen in conjunction with Dr. Solano who agrees with the assessment and plan of care. - Patient Problems (1) Acute HFrEF (heart failure with reduced ejection fraction) Current Visit: Yes Status: Acute (2) Nonischemic cardiomyopathy Current Visit: Yes Status: Chronic (3) Pulmonary edema Current Visit: Yes Status: Acute (4) Hypertension Current Visit: Yes Status: Chronic Qualifiers: Hypertension type: essential hypertension Qualified Code(s): I10 - Essential (primary) hypertension (5) Diabetes Current Visit: Yes Status: Chronic (6) Hyperlipidemia Current Visit: Yes Status: Chronic (7) Sarcoidosis Current Visit: Yes Status: Chronic (8) Sinus tachycardia Current Visit: Yes Status: Acute
--- NOTE | 2020-07-04 12:19 | Consultation ---
History of Present Illness Consult date: 07/04/20 Requesting physician: JEFFERSON MORRIS Reason for consult: other (Sarcoidosis) History of present illness: PULMONARY/CCM CONSULT NOTE (Full dictation # [id number]) Please see dictated notes for full details Past History Past Medical History: diabetes, GERD, heart failure, hypertension, hypothyroidism, sarcoidosis Past Surgical History: cholecystectomy (2010), hysterectomy (1995), Other ([facility] (2019)) Social history: single, lives with family, full code. denies: smoking, alcohol abuse, prescription drug abuse, IV drug use Family history: diabetes, stroke Medications and Allergies Allergies Allergy/AdvReac Type Severity Reaction Status Date / Time No Known Allergies Allergy Verified 04/12/20 10:17 Home Medications Medication Instructions Recorded Confirmed Last Taken Type Albuterol Mdi (or & Nicu Only) 2 puff IH QID PRN #8.5 gram 12/05/19 07/04/20 Unknown Rx [ProAir HFA Inhaler] Glimepiride [Amaryl] 4 mg PO BID 04/13/20 07/04/20 Unknown History Ibuprofen [Motrin 800 MG tab] 800 mg PO TID PRN 04/13/20 07/04/20 Unknown History Levothyroxine [Synthroid] 88 mcg PO QAM 04/13/20 07/04/20 Unknown History Lovastatin 200 mg PO HS 04/13/20 07/04/20 Unknown History hydroCHLOROthiazide 12.5 mg PO DAILY 04/13/20 07/04/20 Unknown History [Hydrochlorothiazide] metFORMIN [Glucophage] 500 mg PO BID 04/13/20 07/04/20 Unknown History methOCARBAMOL [Robaxin TAB] 750 mg PO TID 04/13/20 07/04/20 Unknown History Metoprolol [Lopressor] 25 mg PO DAILY 07/04/20 07/04/20 Unknown History Active Meds: Active Medications Albuterol (Proventil) 2.5 mg IH Q4HRT PRN PRN Reason: Shortness Of Breath Atorvastatin Calcium (Atorvastatin) 10 mg PO QHS [facility] Enoxaparin Sodium (Enoxaparin) 40 mg SUB-Q QDAY@2200 [facility]; Protocol Famotidine (Pepcid) 20 mg PO BID [facility] Last Admin: 07/04/20 10:14 Dose: 20 mg Documented by: Furosemide (Lasix) 40 mg IV BID [facility] Glimepiride (Amaryl) 4 mg PO BIDDIAB [facility] Last Admin: 07/04/20 10:14 Dose: 4 mg Documented by: Labetalol HCl (Labetalol) 10 mg IV Q6HR PRN PRN Reason: Hypertension Levothyroxine Sodium (Synthroid) 88 mcg PO QAM@0600 [facility] Last Admin: 07/04/20 10:14 Dose: 88 mcg Documented by: Losartan Potassium (Cozaar) 25 mg PO QDAY [facility] Metformin HCl (Glucophage) 500 mg PO BIDDIAB [facility] Last Admin: 07/04/20 10:14 Dose: 500 mg Documented by: Metoprolol Tartrate (Metoprolol) 50 mg PO BID [facility] Oxycodone/Acetaminophen (Percocet 5/325) 1 tab PO Q6H PRN PRN Reason: Pain, Moderate (4-6) Physical Examination Vital signs: Vital Signs Temp Pulse Resp BP Pulse Ox 97.6 F 114 H 24 177/98 100 07/04/20 05:26 07/04/20 05:26 07/04/20 05:26 07/04/20 05:26 07/04/20 05:26 Results - Laboratory Findings CBC and BMP: 07/04/20 05:42 07/06/20 07:33 Abnormal lab findings: Abnormal Labs 07/04/20 07/04/20 07/04/20 05:42 05:42 05:42 Seg Neutrophils % 70.8 H Glucose 246 H POC Glucose Hemoglobin A1c 7.6 H NT-Pro-B Natriuret Pep 1978 H Albumin 3.8 L 07/04/20 07/04/20 09:15 11:49 Seg Neutrophils % Glucose POC Glucose 205 H 193 H Hemoglobin A1c NT-Pro-B Natriuret Pep Albumin
[2020-07-04] MEDS: METOPROLOL TARTRATE 25 MG TAB PO SCH ×2 (12:46→21:40)
[2020-07-04 12:55] LABS: BUN/Creatinine Ratio 20; Blood Urea Nitrogen 16 mg/dL (7-17); Calcium 9.3 mg/dL (8.4-10.2); Hemolysis Index 12
[2020-07-04] MEDS: FUROSEMIDE 40 MG/4 ML INJ IV SCH ×2 (17:41→21:35)
[2020-07-04] MEDS: oxyCODONE /ACETAMINOPHEN 5-325MG TAB PO PRN (18:30)
[2020-07-04] MEDS: ENOXAPARIN 40 MG/0.4 ML INJ SUB-Q SCH (21:38)
[2020-07-04] MEDS: ONDANSETRON 4 MG/2 ML INJ IV PRN (21:45)
[2020-07-05 06:06] LABS: BUN/Creatinine Ratio 22; Blood Urea Nitrogen 22 mg/dL (7-17); Calcium 8.6 mg/dL (8.4-10.2); Hemolysis Index 10
[2020-07-05] MEDS: LEVOTHYROXINE 88 MCG TAB PO SCH (06:38)
[2020-07-05] MEDS: ONDANSETRON 4 MG/2 ML INJ IV PRN ×2 (06:41→22:34)
[2020-07-05] MEDS: metFORMIN 500 MG TAB PO SCH ×2 (09:50→17:16)
[2020-07-05] MEDS: GLIMEPIRIDE 4 MG TAB PO SCH ×2 (09:50→17:16)
[2020-07-05] MEDS: FAMOTIDINE 20 MG TAB PO SCH ×2 (09:50→22:22)
[2020-07-05] MEDS: METOPROLOL TARTRATE 25 MG TAB PO SCH ×2 (09:51→22:21)
[2020-07-05] MEDS: FUROSEMIDE 40 MG/4 ML INJ IV SCH ×2 (09:52→22:21)
[2020-07-05] MEDS: LOSARTAN 25 MG TAB PO SCH (09:52)
[2020-07-05] MEDS ORDERED: METOCLOPRAMIDE 10 MG/2 ML INJ IV SCH (11:30)
--- NOTE | 2020-07-05 11:35 | Progress Note ---
Assessment and Plan - Patient Problems (1) Acute HFrEF (heart failure with reduced ejection fraction) Current Visit: Yes Status: Acute Plan to address problem: -07/04 CXR shows mild bilateral density which may be edema -Received 60 mg Lasix x1 in the emergency department -Admit BNP 1977 -Started on IV Lasix, increased to BID dosing on 07/04, on losartan -Trend BMP and replete potassium as needed -Cardiology consulted -04/17/2020 left heart cath showed normal coronaries with no evidence of CAD and a EF of ~25% -03/2020 TTE showed EF of 25 to 30% with mild dilation of the left ventricle -per cards: 07/05 patient is in SR HR 80s with transient episode of 2:1 AV block noted overnight, Cont present cardiac management and close observation on telemetry for another 24Hr. Can consider reduction/discontinuation of BB and EP consultation if AV block recurs. (2) Acute respiratory distress Current Visit: Yes Status: Acute Plan to address problem: -On presentation SPO2 89% on room air -Placed on nonrebreather in the emergency department now weaned to NC 2L -Supplemental oxygen as needed -Wean oxygenation as tolerated -Pulmonary hygiene -Continuous SPO2 monitoring (3) Diabetes Current Visit: Yes Status: Chronic Plan to address problem: -07/04 Hemoglobin A1c 7.6 -CC cardiac diet -Started home antidiabetic regimen (metformin and Amaryl) -Accu-Cheks AC at bedtime -Hypoglycemia protocol (4) Hypertension Current Visit: Yes Status: Chronic Qualifiers: Hypertension type: essential hypertension Qualified Code(s): I10 - Essential (primary) hypertension Plan to address problem: -Blood pressure monitor per protocol -On losartan and lopressor -PRN labetalol for systolic blood pressure greater than 160 (5) Sarcoidosis Current Visit: Yes Status: Chronic Plan to address problem: -Supportive care -Pulmonary consulted (6) GERD (gastroesophageal reflux disease) Current Visit: Yes Status: Chronic Plan to address problem: Restarted on home Pepcid (7) Hypothyroidism Current Visit: Yes Status: Chronic Plan to address problem: Restarted on home levothyroxine (8) DVT prophylaxis Current Visit: No Status: Acute Plan to address problem: -SCDs to bilateral lower extremities while in bed -Lovenox subcu History Interval history: This is a 51-year-old female with sarcoidosis, nonischemic cardiomyopathy with a EF of 25 to 30%, DM, HTN, GERD, and hypothyroidism who presents to the emergency department with complaints of sudden onset of shortness of breath while sleeping at 0130 on 07/04. She experienced intermittent wheezing and used her albuterol inhaler with no improvement. In the emergency department her SPO2 on room air was 89% which improved to 100% with a nonrebreather. Of note she had a left heart cath 04/17 which showed normal coronaries without any evidence of CAD or s tents with a EF of ~25% and is seen by Dr. Carranza outpatient. Work-up in the emergency department reveals cardiomegaly with bilateral mild opacity which may represent pulmonary edema, troponin less than 0.010 and an elevated BNP of 1978. In the emergency department she received 60 mg of Lasix which within subjective improvement in her symptoms. Cardiology was consulted in the emergency department and she was admitted to the hospitalist service for acute CHF exacerbation. 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 Even after being medicated with zofran, she still complains of nausea and a one time order of reglan given. 07/04: Pulmonary consult, IV Lasix 40mg BID and Lopressor 50mg BID Hospitalist Physical - Constitutional Vitals: Temp Pulse Resp BP Pulse Ox 97.9 F 78 18 132/82 99 07/05/20 07:43 07/05/20 09:52 07/05/20 07:43 07/05/20 09:52 07/05/20 07:58 General appearance: Present: no acute distress, well-nourished - EENT Eyes: Present: PERRL, EOM intact ENT: hearing intact, clear oral mucosa - Neck Neck: Present: supple - Respiratory Respiratory effort: normal Respiratory: bilateral: CTA - Cardiovascular Rhythm: regular Heart Sounds: Present: S1 & S2. Absent: systolic murmur, diastolic murmur - Extremities Extremities: no ischemia, pulses intact, pulses symmetrical, No edema, normal temperature, normal color, Full ROM - Abdominal General gastrointestinal: non-tender, non-distended, normal bowel sounds - Integumentary Integumentary: Present: clear, warm, dry - Psychiatric Psychiatric: cooperative - Neurologic Neurologic: CNII-XII intact, no focal deficits, moves all extremities - Allied Health Allied health notes reviewed: nursing HEART Score - HEART Score EKG: Normal Age: 45-65 Risk factors: 1-2 risk factors Troponin: Troponin T < 0.010 ng/mL (0.00-0.029) 07/04/20 05:42 Troponin: < normal limit Results - Labs CBC & Chem 7: 07/04/20 05:42 07/05/20 05:19 Labs: Laboratory Last Values WBC 7.7 K/mm3 (4.5-11.0) 07/04/20 05:42 RBC 4.22 M/mm3 (3.65-5.03) 07/04/20 05:42 Hgb 12.7 gm/dl (10.1-14.3) 07/04/20 05:42 Hct 39.2 % (30.3-42.9) 07/04/20 05:42 MCV 93 fl (79-97) 07/04/20 05:42 MCH 30 pg (28-32) 07/04/20 05:42 MCHC 33 % (30-34) 07/04/20 05:42 RDW 15.1 % (13.2-15.2) 07/04/20 05:42 Plt Count 228 K/mm3 (140-440) 07/04/20 05:42 Lymph % (Auto) 23.0 % (13.4-35.0) 07/04/20 05:42 Atlantic % (Auto) 5.0 % (0.0-7.3) 07/04/20 05:42 Eos % (Auto) 0.8 % (0.0-4.3) 07/04/20 05:42 Baso % (Auto) 0.4 % (0.0-1.8) 07/04/20 05:42 Lymph # 1.8 K/mm3 (1.2-5.4) 07/04/20 05:42 Atlantic # 0.4 K/mm3 (0.0-0.8) 07/04/20 05:42 Eos # 0.1 K/mm3 (0.0-0.4) 07/04/20 05:42 Baso # 0.0 K/mm3 (0.0-0.1) 07/04/20 05:42 Seg Neutrophils % 70.8 % (40.0-70.0) H 07/04/20 05:42 Seg Neutrophils # 5.4 K/mm3 (1.8-7.7) 07/04/20 05:42 ABG pH 7.430 (7.320-7.450) 07/04/20 Unknown POC ABG pCO2 45.7 mmHg (32.0-48.0) 07/04/20 Unknown POC ABG pO2 110.9 mmHg (83-108) H 07/04/20 Unknown POC ABG HCO3 29.7 07/04/20 Unknown POC ABG Base Excess 4.6 07/04/20 Unknown ABG Hemoglobin 14.2 (12.0-17.5) 07/04/20 Unknown FiO2 40.0 07/04/20 Unknown Sodium 137 mmol/L (137-145) 07/05/20 05:19 Potassium 4.0 mmol/L (3.6-5.0) 07/05/20 05:19 Chloride 97.5 mmol/L (98-107) L 07/05/20 05:19 Carbon Dioxide 25 mmol/L (22-30) 07/05/20 05:19 Anion Gap 19 mmol/L 07/05/20 05:19 BUN 22 mg/dL (7-17) H 07/05/20 05:19 Creatinine 1.0 mg/dL (0.6-1.2) 07/05/20 05:19 Estimated GFR > 60 ml/min 07/05/20 05:19 BUN/Creatinine Ratio 22 % 07/05/20 05:19 Glucose 203 mg/dL (65-100) H 07/05/20 05:19 POC Glucose 200 (70-105) H 07/05/20 07:56 Hemoglobin A1c 7.6 % (4-6) H 07/04/20 05:42 Calcium 8.6 mg/dL (8.4-10.2) 07/05/20 05:19 Magnesium 2.00 mg/dL (1.7-2.3) 07/05/20 09:22 Total Bilirubin 0.20 mg/dL (0.1-1.2) 07/04/20 05:42 AST 21 units/L (5-40) 07/04/20 05:42 ALT 16 units/L (7-56) 07/04/20 05:42 Alkaline Phosphatase 67 units/L (35-129) 07/04/20 05:42 Troponin T < 0.010 ng/mL (0.00-0.029) 07/04/20 05:42 NT-Pro-B Natriuret Pep 1978 pg/mL (0-900) H 07/04/20 05:42 Total Protein 6.8 g/dL (6.3-8.2) 07/04/20 05:42 Albumin 3.8 g/dL (3.9-5) L 07/04/20 05:42 Albumin/Globulin Ratio 1.3 % 07/04/20 05:42 Martinez/IV: Voiding Method Toilet IV Catheter Type [Right Hand] INT / Saline Lock Active Medications - Current Medications Current Medications: Generic Name Dose Route Start Last Admin Trade Name Freq PRN Reason Stop Dose Admin Albuterol 2.5 mg 07/04/20 07:41 Proventil IH Q4HRT PRN Shortness Of Breath Atorvastatin Calcium 10 mg 07/04/20 22:00 07/04/20 21:38 Atorvastatin PO 10 mg QHS KRISTEN Administration Enoxaparin Sodium 40 mg 07/04/20 22:00 07/04/20 21:38 Enoxaparin SUB-Q 40 mg QDAY@2200 KRISTEN Administration Protocol Famotidine 20 mg 07/04/20 10:00 07/05/20 09:50 Pepcid PO 20 mg BID KRISTEN Administration Furosemide 40 mg 07/04/20 18:00 07/05/20 09:52 Lasix IV 40 mg BID KRISTEN Administration Glimepiride 4 mg 07/04/20 10:00 07/05/20 09:50 Amaryl PO 4 mg BIDDIAB KRISTEN Administration Labetalol HCl 10 mg 07/04/20 09:01 Labetalol IV Q6HR PRN Hypertension Levothyroxine Sodium 88 mcg 07/04/20 10:00 07/05/20 06:38 Synthroid PO 88 mcg QAM@0600 KRISTEN Administration Losartan Potassium 25 mg 07/05/20 10:00 07/05/20 09:52 Cozaar PO 25 mg QDAY KRISTEN Administration Metformin HCl 500 mg 07/04/20 10:00 07/05/20 09:50 Glucophage PO 500 mg BIDDIAB KRISTEN Administration Metoclopramide HCl 10 mg 07/05/20 11:30 Reglan IV 07/05/20 15:00 ONCE KRISTEN Metoprolol Tartrate 50 mg 07/04/20 10:39 07/05/20 09:51 Metoprolol PO 50 mg BID KRISTEN Administration Ondansetron HCl 4 mg 07/04/20 21:22 07/05/20 06:41 Zofran IV 4 mg Q6H PRN Administration Nausea And Vomiting Oxycodone/Acetaminophen 1 tab 07/04/20 09:03 07/04/20 18:30 Percocet 5/325 PO 1 tab Q6H PRN Administration Pain, Moderate (4-6)
--- NOTE | 2020-07-05 11:56 | Progress Note ---
Assessment and Plan tele reviewed - in SR HR 80s with transient episode of 2:1 AV block noted overnight. Cont present cardiac management and close observation on telemetry for another 24Hr. Can consider reduction/discontinuation of BB and EP consultation if AV block recurs. Pulmonary w/u in progress. The patient has been seen in conjunction with Dr. Solano who agrees with the assessment and plan of care. - Patient Problems (1) Acute HFrEF (heart failure with reduced ejection fraction) Current Visit: Yes Status: Acute (2) Nonischemic cardiomyopathy Current Visit: Yes Status: Chronic (3) Pulmonary edema Current Visit: Yes Status: Acute (4) Hypertension Current Visit: Yes Status: Chronic Qualifiers: Hypertension type: essential hypertension Qualified Code(s): I10 - Essential (primary) hypertension (5) Diabetes Current Visit: Yes Status: Chronic (6) Hyperlipidemia Current Visit: Yes Status: Chronic (7) Sarcoidosis Current Visit: Yes Status: Chronic (8) Sinus tachycardia Current Visit: Yes Status: Resolved Subjective Date of service: 07/05/20 Principal diagnosis: HF Interval history: pt resting in bed, feeling better today. had some n/v overnight. tele reviewed - in SR HR 80s with transient episode of 2:1 AV block noted overnight. Objective Last Vital Signs Temp 98.2 F 07/05/20 11:40 Pulse 69 07/05/20 11:40 Resp 18 07/05/20 11:40 BP 130/82 07/05/20 11:40 Pulse Ox 93 07/05/20 11:40 - Physical Examination General: No Apparent Distress HEENT: Positive: PERRL, Normocephaly, Mucus Membranes Moist Neck: Positive: neck supple, trachea midline Cardiac: Positive: Reg Rate and Rhythm, S1/S2 Lungs: Positive: Decreased Breath Sounds Neuro: Positive: Grossly Intact Abdomen: Negative: Tender Skin: Negative: Rash Musculoskeletal: No Pain Extremities: Absent: edema - Labs and Meds Comprehensive Metabolic Panel 07/04/20 07/05/20 Range/Units 12:19 05:19 Sodium 140 137 (137-145) mmol/L Potassium 4.0 4.0 (3.6-5.0) mmol/L Chloride 97.2 L 97.5 L (98-107) mmol/L Carbon Dioxide 28 25 (22-30) mmol/L BUN 16 22 H (7-17) mg/dL Creatinine 0.8 1.0 (0.6-1.2) mg/dL Glucose 180 H 203 H (65-100) mg/dL Calcium 9.3 8.6 (8.4-10.2) mg/dL - Imaging and Cardiology EKG: report reviewed, image reviewed Echo: report reviewed (03/2020 showed EF 25-30%, LV mildly dilated. ) Cardiac cath: report reviewed (04/17/2020 showed normal coronaries, no CAD or prior stenting noted, EF ~25%. ) - EKG Sinus rhythms and dysrhythmias: sinus rhythm Repolarization changes or abnormalities: nonspecific abnormality, ST segment, and/or T wave
[2020-07-05] MEDS: oxyCODONE /ACETAMINOPHEN 5-325MG TAB PO PRN (18:47)
[2020-07-05] MEDS: ENOXAPARIN 40 MG/0.4 ML INJ SUB-Q SCH (22:21)
[2020-07-05] MEDS ORDERED: IBUPROFEN 600 MG TAB PO ONE (23:19)
[2020-07-06 01:55] LABS: Calcium 8.8 mg/dL (8.4-10.2)
[2020-07-06] MEDS: ONDANSETRON 4 MG/2 ML INJ IV PRN (05:52)
[2020-07-06] MEDS: LEVOTHYROXINE 88 MCG TAB PO SCH (05:52)
[2020-07-06 08:25] LABS: BUN/Creatinine Ratio 29; Blood Urea Nitrogen 32 mg/dL (7-17); Hemolysis Index 4
[2020-07-06] MEDS: INSULIN LISPRO 100 UNIT/ML VIAL 3 mL SUB-Q SCH ×3 (08:52→16:50)
[2020-07-06] MEDS: GLIMEPIRIDE 4 MG TAB PO SCH ×2 (08:52→16:50)
[2020-07-06] MEDS: metFORMIN 500 MG TAB PO SCH ×2 (08:52→16:49)
[2020-07-06] MEDS: METOPROLOL TARTRATE 25 MG TAB PO SCH (09:48)
[2020-07-06] MEDS: FAMOTIDINE 20 MG TAB PO SCH (09:49)
[2020-07-06] MEDS: LOSARTAN 25 MG TAB PO SCH (09:49)
[2020-07-06] MEDS: FUROSEMIDE 40 MG/4 ML INJ IV SCH (09:49)
--- NOTE | 2020-07-06 10:57 | Consultation ---
PULMONARY CONSULTATION NOTE CONSULTING PHYSICIAN: Remedios Johnston. REASON FOR CONSULTATION: Acute hypoxemic respiratory failure, history of sarcoidosis. CHIEF COMPLAINT AND HISTORY OF PRESENT ILLNESS: The patient is a 50-year-old -[place] female with past medical history according to her significant for a diagnosis of sarcoidosis, which she got in the 1980s, if I remember correctly and this was diagnosed out of [facility]. She moved into the region about 5 years ago. Since then, has not been seen by liner man and actually states she was never seen by a liner man. As far as she can remember, her sarcoidosis has been managed by her primary care physician. She also has a past medical history significant for congestive heart failure, ejection fraction 25-30%. She came to the Emergency Room complaining of sudden onset of shortness of breath essentially orthopnea. She had also complained of intermittent wheezing. She has a home albuterol inhaler. It did not improve her symptoms. She was trying to drive to the Emergency Room; however, had to stop on the road and called Emergency [facility]. She was hypoxemic, O2 sats according to the EMS service is 89% on room air. She was placed on a nonrebreather and brought into the ER. She denied any nausea, vomiting, fevers or chills. She denied any gross or streaky hemoptysis. She denied any contacts with the patients with known COVID-19 and recently had a negative COVID-19 test in 03/2020. 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 She mentions Dr. Carranza is the physician's name. She was evaluated in the Emergency Room, admitted to the medical floor. We are asked to assist with management in particular because of the history of sarcoidosis. As mentioned, she denies a history of bronchoscopy. She does not really know how her sarcoidosis was diagnosed. She denies any particularly significant problems with her vision or eyesight. She denies any history of significant liver disease. She denies any history of seizures, difficult to control headaches, any signs of significant extrapulmonary sarcoidosis. When I stopped by to see her, she was resting in bed, feeling better since she was given supplemental oxygen and since she was given some Lasix. I should mention, she denies significant leg pain or swelling either unilaterally or bilaterally or any suggestion of a deep venous thrombosis. This really is as much of the history of this presentation as I have. PAST MEDICAL HISTORY: There is a history of sarcoidosis, history of diabetes, congestive heart failure, gastroesophageal reflux disease, hypertension, hypothyroidism, sarcoidosis. She is also obese. PAST SURGICAL HISTORY: Cholecystectomy in 2010, hysterectomy in 1995. MEDICATIONS: She was on, at the time I stopped by to see her, were reviewed. Pertinent medications included the following: Albuterol nebulizer treatments 2.5 mg nebulized q. 4 hours p.r.n. shortness of breath, Lipitor 10 mg p.o. at bedtime, Lovenox 40 mg subcutaneous daily, Pepcid 20 mg p.o. b.i.d., Lasix 40 mg IV b.i.d., Amaryl 4 mg p.o. b.i.d., labetalol 10 mg IV q. 6 hours p.r.n. elevated blood pressures, Levoxyl 88 mcg p.o. daily, losartan 25 mg p.o. daily, metformin 500 mg p.o. b.i.d., metoprolol 50 mg p.o. b.i.d. and Percocet 5/325 mg 1 tablet p.o. q. 6 hours p.r.n. moderate pain. ALLERGIES: No known drug allergies. DIET: Obese lady. Denies acute weight loss or gain in the preceding few weeks to months. FAMILY AND SOCIAL HISTORY: Lives in the community. Denies alcohol, tobacco, or illicit drug use or abuse. Denies any significant remote tobacco smoking history. FAMILY HISTORY: Positive for diabetes and cerebrovascular accidents, otherwise. REVIEW OF SYSTEMS: No loss of consciousness. No new onset seizures. No new onset focal weakness. Denies gross hematochezia or melena. Denies gross hematuria or dysuria. Denies any history of nephrolithiasis. Denies any significant back, costovertebral angle pain. Denies heat or cold intolerance. Denies polydipsia or polyuria. Complete 13-system review of systems obtained. Pertinent positives and/or negatives as in body of history above, otherwise are noncontributory. PHYSICAL EXAMINATION: VITAL SIGNS: At presentation, she was afebrile, temperature 97.6 degrees Fahrenheit, pulse of 114, respiratory rate 24 per minute, described as short of breath and labored, blood pressure 177/98, O2 sats 100%, inspired oxygen concentration at that time was not recorded. When I stopped by to see her, her O2 sats were 98% that was on 2 liters nasal cannula at that time. GENERAL: She is a middle-aged obese lady, normocephalic, atraumatic, talking to me in mostly full sentences with mildly increased respiratory effort at rest. HEAD, EYES, EARS, NOSE AND THROAT: Anicteric. No conjunctival erythema. Oropharynx was moist. Mallampati #2 oropharynx. No gross jugular venous distention. No thyromegaly. She does have a large neck circumference. Grossly, no palpable lymph nodes in the supraclavicular or submandibular lymph node chains. LUNGS: Auscultation of both lung figueredo diminished/distant breath sounds, bibasilar inspiratory rales, no wheezing. HEART: Heart sounds 1 and 2 are heard, regular rate and rhythm at the time of my evaluation without overt rubs or murmurs. ABDOMEN: Soft, full, bowel sounds are positive, nontender. It is protuberant. No palpable hepatosplenomegaly. No costovertebral angle tenderness. EXTREMITIES: Without overt digital clubbing or cyanosis. No pedal edema. Pedal pulses were 2+ bilaterally. NEUROLOGIC: Pupils are equal, round, about 4 mm, reactive to light. Extraocular muscle movements were intact. She moves all 4 extremities spontaneously. SKIN: Normal turgor in the areas examined without overt cellulitis or rash. Please see the wound care nurse's notes for full description of her skin. PSYCHIATRIC: Mood was appropriate. Affect was normal. LABORATORY DATA: From my review are as follows: Admission white cell count 7700, hemoglobin 12.7, hematocrit 39.2, platelet count was 228. No manual differential. Arterial blood gas showed a pH of 7.43, pCO2 of 46, pO2 of 111, that was on 40% FiO2 at that time. Serum sodium 140, potassium 4.0, chloride 103, bicarbonate 23, BUN 17, creatinine 0.8, glucose 246. Hemoglobin A1c was 7.6. Liver function test within normal limits. BNP was elevated at 1978. Albumin was slightly reduced at 3.8. No microbiology studies for my review. A chest x-ray was done. I have reviewed the chest x-ray, it shows gross cardiomegaly, small bilateral pleural effusions, bilateral pulmonary infiltrates with some sparing of the APCs, all consistent with pulmonary edema in this particular clinical context. No gross pneumothorax. No gross bony fractures. Compared with an x-ray from 04/12. These changes are enhanced with increased infiltrates and effusions. ASSESSMENT: 1. Acute hypoxemic respiratory failure, presumably secondary to #2. 2. Acute congestive heart failure exacerbation. 3. History of sarcoidosis. 4. History of diabetes. 5. Hypertension. 6. Gastroesophageal reflux disease. 7. Obesity. 8. Hypothyroidism. 9. Hyperlipidemia. PLAN: I do feel that the major presentation here is, is all due to congestive heart failure exacerbation. I do agree with diuresis to try and improve the pulmonary edema. A Cardiology consultation will be at the behest of the attending physician. From a sarcoidosis standpoint, I have stressed the importance of followup with a liner man and to get a better understanding of her disease process. She does not remember having pulmonary function testing done or other intervention. It is really unclear where the diagnosis came from. She will be glad we followed up on the outpatient pulmonary clinic. She will also benefit from Sleep Clinic evaluation. I have urged continued tobacco abstinence. I have urged medication compliance. Glycemic control will be for target blood glucose less than about 180 mg/dL during this admission. There is no acute indication for systemic steroids from a sarcoidosis standpoint. She is appropriately on GI and has been placed on DVT prophylaxis. Flu and pneumonia vaccination will be addressed per protocol. If there is any worsening of her respiratory status, she will benefit from bilevel positive airway pressure ventilation therapy. Thank you very much for the consult. We will follow along and make further recommendations as picture progresses/becomes clearer. [facility]# [id number] [place]/CAROL ANN
[2020-07-06 12:02] VITALS: BP 112/73
--- NOTE | 2020-07-06 13:46 | Progress Note ---
Assessment and Plan 1) Acute HFrEF (heart failure with reduced ejection fraction) Current Visit: Yes Status: Acute Plan to address problem: -07/04 CXR shows mild bilateral density which may be edema -Received 60 mg Lasix x1 in the emergency department -Admit BNP 1977 -Started on IV Lasix, increased to BID dosing on 07/04, on losartan -Trend BMP and replete potassium as needed -04/17/2020 left heart cath showed normal coronaries with no evidence of CAD and a EF of ~25% -03/2020 TTE showed EF of 25 to 30% with mild dilation of the left ventricle -per cards: 07/05 patient is in SR HR 80s with transient episode of 2:1 AV block noted overnight, Cont present cardiac management (2) Acute respiratory distress Current Visit: Yes Status: Acute Plan to address problem: -On presentation SPO2 89% on room air -Supplemental oxygen as needed -Pulmonary hygiene -Home oxygen evalatuion prior to discharge (3) Diabetes Current Visit: Yes Status: Chronic Plan to address problem: -07/04 Hemoglobin A1c 7.6 (4) Hypertension Current Visit: Yes Status: Chronic Qualifiers: Hypertension type: essential hypertension Qualified Code(s): I10 - Essential (primary) hypertension Plan to address problem: -Blood pressure monitor per protocol -On losartan and lopressor -PRN labetalol for systolic blood pressure greater than 160 (5) Sarcoidosis Current Visit: Yes Status: Chronic Plan to address problem: -Supportive care -Outpatietn follow up (6) GERD (gastroesophageal reflux disease) Current Visit: Yes Status: Chronic Plan to address problem: Restarted on home Pepcid (7) Hypothyroidism Current Visit: Yes Status: Chronic Plan to address problem: (8) DVT prophylaxis Current Visit: No Status: Acute Plan to address problem: -SCDs to bilateral lower extremities while in bed -Lovenox subcu Subjective Date of service: 07/06/20 Principal diagnosis: HF Interval history: Follow up: Acute hypoxic respiratory failure: Sarcoidosis Seen and examined. Vitals, labs, medications, chart reviewed. No adverse overnight events. She is anxious because of the ongoing shortness s of breath, adn chest pain. States she was diagnosed with Sarcoidosis about 10 years ago, she is unsure if it was tissue diagnoses. She was initially treated with Avair( LABA/ICS). She does not remember every needing systemic steroids. I have explained to her and I also notified the hospitalist service, that the diagnosis of Sarcoidosis will be managed as an outpatient. The patient will fol low up with me on discharge . I will obtain her medical records from her former [facility] and based on those findings and PFTs etc., we can decide on a course of action. I Objective - Exam Narrative Exam: General appearance: Present: no acute distress, well-nourished - EENT Eyes: Present: PERRL, EOM intact ENT: hearing intact, clear oral mucosa - Neck Neck: Present: supple, normal ROM - Respiratory Respiratory effort: normal Respiratory: bilateral: other (crackles) - Cardiovascular Rhythm: regular Heart Sounds: Present: S1 & S2. Absent: systolic murmur, diastolic murmur - Extremities Extremities: no ischemia, pulses intact, pulses symmetrical, No edema, normal temperature, normal color, Full ROM Peripheral Pulses: within normal limits - Abdominal General gastrointestinal: Present: soft, non-tender, non-distended, normal bowel sounds - Integumentary Integumentary: Present: clear, warm, dry - Musculoskeletal Musculoskeletal: strength equal bilaterally - Psychiatric Psychiatric: appropriate mood/affect, memory intact, cooperative - Neurologic Neurologic: CNII-XII intact, no focal deficits, moves all extremities - Allied Health Allied health notes reviewed: nursing Vital Signs - 12hr 07/06/20 07/06/20 07/06/20 03:43 07:00 07:55 Temperature 98.7 F 99.0 F Pulse Rate 83 80 46 L Pulse Rate [ Left Radial] Pulse Rate [ Right Radial] Respiratory 18 18 Rate Blood Pressure 110/70 116/63 O2 Sat by Pulse 98 92 Oximetry 07/06/20 07/06/20 07/06/20 09:47 09:48 09:49 Temperature Pulse Rate 85 85 Pulse Rate [ Left Radial] Pulse Rate [ Right Radial] Respiratory Rate Blood Pressure 103/43 103/43 103/43 O2 Sat by Pulse Oximetry 07/06/20 07/06/20 10:00 12:00 Temperature 98.5 F Pulse Rate 75 Pulse Rate [ 63 Left Radial] Pulse Rate [ 63 Right Radial] Respiratory 20 18 Rate Blood Pressure 112/73 O2 Sat by Pulse 90 Oximetry CBC and BMP: 07/04/20 05:42 07/06/20 07:33 ABG, PT/INR, D-dimer: ABG ABG pH 7.430 (7.320-7.450) 07/04/20 Unknown POC ABG pCO2 45.7 mmHg (32.0-48.0) 07/04/20 Unknown POC ABG pO2 110.9 mmHg (83-108) H 07/04/20 Unknown POC ABG HCO3 29.7 07/04/20 Unknown Abnormal lab findings: Abnormal Labs 07/04/20 07/04/20 07/04/20 05:42 05:42 05:42 Seg Neutrophils % 70.8 H POC ABG pO2 Chloride BUN Glucose 246 H POC Glucose Hemoglobin A1c 7.6 H NT-Pro-B Natriuret Pep 1978 H Albumin 3.8 L Free T4 07/04/20 07/04/20 07/04/20 09:15 11:49 12:19 Seg Neutrophils % POC ABG pO2 Chloride 97.2 L BUN Glucose 180 H POC Glucose 205 H 193 H Hemoglobin A1c NT-Pro-B Natriuret Pep Albumin Free T4 07/04/20 07/04/20 07/05/20 16:08 Unknown 05:19 Seg Neutrophils % POC ABG pO2 110.9 H Chloride 97.5 L BUN 22 H Glucose 203 H POC Glucose 124 H Hemoglobin A1c NT-Pro-B Natriuret Pep Albumin Free T4 07/05/20 07/05/20 07/05/20 07:56 11:54 12:56 Seg Neutrophils % POC ABG pO2 Chloride BUN Glucose POC Glucose 200 H 241 H Hemoglobin A1c NT-Pro-B Natriuret Pep Albumin Free T4 1.58 H 07/05/20 07/05/20 07/06/20 16:31 22:09 00:59 Seg Neutrophils % POC ABG pO2 Chloride 95.7 L BUN 31 H Glucose 191 H POC Glucose 253 H 189 H Hemoglobin A1c NT-Pro-B Natriuret Pep Albumin Free T4 07/06/20 07/06/20 07/06/20 07:33 08:08 12:13 Seg Neutrophils % POC ABG pO2 Chloride 96.2 L BUN 32 H Glucose 162 H POC Glucose 149 H 264 H Hemoglobin A1c NT-Pro-B Natriuret Pep Albumin Free T4
--- NOTE | 2020-07-06 13:59 | Progress Note ---
Assessment and Plan tele reviewed - in SR HR 80s, no AVB noted overnight, 10 beat run NSVT noted around 6AM today, pt asymptomatic. Currently stable cardiac status. Cont present cardiac management. Pt may discharge from cardiology standpoint. At discharge, recommend PO lasix 40mg daily. Cont all other present cardiac management. Will plan to address for AICD candidacy as OP. Recommend pt follow up in our office with Dr. Carranza within 1-2 weeks ([phone]). Pt verbalizes understanding. The patient has been seen in conjunction with Dr. Solano who agrees with the assessment and plan of care. - Patient Problems (1) Acute HFrEF (heart failure with reduced ejection fraction) Current Visit: Yes Status: Acute (2) Nonischemic cardiomyopathy Current Visit: Yes Status: Chronic (3) Pulmonary edema Current Visit: Yes Status: Acute (4) Hypertension Current Visit: Yes Status: Chronic Qualifiers: Hypertension type: essential hypertension Qualified Code(s): I10 - Essential (primary) hypertension (5) Diabetes Current Visit: Yes Status: Chronic (6) Hyperlipidemia Current Visit: Yes Status: Chronic (7) Sarcoidosis Current Visit: Yes Status: Chronic (8) Sinus tachycardia Current Visit: Yes Status: Resolved Subjective Date of service: 07/06/20 Principal diagnosis: HF Interval history: pt resting in bed, feeling better today. tele reviewed - in SR HR 80s, no AVB noted overnight, 10 beat run NSVT noted around 6AM today, pt asymptomatic. Objective Last Vital Signs Temp 98.5 F 07/06/20 12:00 Pulse 96 H 07/06/20 13:46 Resp 18 07/06/20 12:00 BP 112/73 07/06/20 12:00 Pulse Ox 90 07/06/20 12:00 - Physical Examination General: No Apparent Distress HEENT: Positive: PERRL, Normocephaly, Mucus Membranes Moist Neck: Positive: neck supple, trachea midline Cardiac: Positive: Reg Rate and Rhythm, S1/S2 Lungs: Positive: Decreased Breath Sounds Neuro: Positive: Grossly Intact Abdomen: Negative: Tender Skin: Negative: Rash Musculoskeletal: No Pain Extremities: Absent: edema - Labs and Meds Comprehensive Metabolic Panel 07/06/20 07/06/20 Range/Units 00:59 07:33 Sodium 139 139 (137-145) mmol/L Potassium 3.8 4.1 (3.6-5.0) mmol/L Chloride 95.7 L 96.2 L (98-107) mmol/L Carbon Dioxide 24 28 (22-30) mmol/L BUN 31 H 32 H (7-17) mg/dL Creatinine 1.2 1.1 (0.6-1.2) mg/dL Glucose 191 H 162 H (65-100) mg/dL Calcium 8.8 9.0 (8.4-10.2) mg/dL - Imaging and Cardiology EKG: report reviewed, image reviewed Echo: report reviewed (03/2020 showed EF 25-30%, LV mildly dilated. ) Cardiac cath: report reviewed (04/17/2020 showed normal coronaries, no CAD or prior stenting noted, EF ~25%. ) - EKG Sinus rhythms and dysrhythmias: sinus rhythm Repolarization changes or abnormalities: nonspecific abnormality, ST segment, and/or T wave
--- NOTE | 2020-07-06 14:32 | Discharge Summary ---
Providers - Providers Date of Admission: 07/04/20 07:13 Date of discharge: 07/06/20 Attending physician: MICHELE BOOTHE 07/04/20 06:34 Consult to Physician [CONS] Urgent Comment: Consulting Provider: EFRAIN OROZCO Physician Instructions: Reason For Exam: chf exacerbation, nonischemic cardiomyopathy 07/04/20 11:21 Consult to Physician [CONS] Routine Comment: Consulting Provider: GUILLE PORTILLO Physician Instructions: Reason For Exam: Sarcoidosis Primary care physician: STEVE CHIRINOS Hospitalization Condition: Stable Pertinent studies: 07/04 CXR shows cardiomegaly with mild bilateral opacity which may represent edema. Hospital course: This is a 51-year-old female with sarcoidosis, nonischemic cardiomyopathy with a EF of 25 to 30%, DM, HTN, GERD, and hypothyroidism who presents to the emergency department with complaints of sudden onset of shortness of breath while sleeping at 0130 on 07/04. She experienced intermittent wheezing and used her albuterol inhaler with no improvement. In the emergency department her SPO2 on room air was 89% which improved to 100% with a nonrebreather. Of note she had a left heart cath 04/17 which showed normal coronaries without any evidence of CAD or stents with a EF of ~25% and is seen by Dr. Orozco outpatient. Work-up in the emergency department reveals cardiomegaly with bilateral mild opacity which may represent pulmonary edema, troponin less than 0.010 and an elevated BNP of 1978. In the emergency department she received 60 mg of Lasix which within subjective improvement in her symptoms. Cardiology was consulted in the emergency department and she was admitted to the hospitalist service for acute CHF exacerbation. On 07/04 a pulmonology consult was obtained for history of sarcoidosis with wheezing and she was given IV Lasix 40 mg twice daily with Lopressor 50 mg twice daily. Overnight she experienced transient AV block therefore her AV mona blocking agents were discontinued. On 07/05 she complained of some nausea and her Episodes of emesis however these are usually resolved with antiemetics and have not repeated throughout the course of the hospitalization. Overnight on 07/06 she had no AV block on reviewing her remote telemetry monitoring and had a 10 beat run of nonsustained V. tach around 6 AM however she was asymptomatic. Therefore she is currently stable for discharge from a cardiac standpoint. And she will be discharged with p.o. Lasix 40 mg/day, labetalol and losartan. It is recommended that she follows up with Dr. Orozco in his office within 1 to 2 weeks. Follow-up with your primary care physician within 1 to 2 weeks of discharge. It is recommend that you establish care with a linen worker within 1 to 2 weeks of discharge. Recommend pt follow up in our office with Dr. Orozco within 1-2 weeks ([phone]). - Patient Problems (1) Acute HFrEF (heart failure with reduced ejection fraction) Current Visit: Yes Status: Acute Plan to address problem: -07/04 CXR shows mild bilateral density which may be edema -Received 60 mg Lasix x1 in the emergency department -Admit BNP 1977 -Continue PO lasix 40mg daily, losartan, beta-leonardo -04/17/2020 left heart cath showed normal coronaries with no evidence of CAD and a EF of ~25% -03/2020 TTE showed EF of 25 to 30% with mild dilation of the left ventricle -Cardiology plans to address for AICD candidacy as outpatint; Recommend follow up with Dr. Orozco within 1-2 weeks ([phone]) (2) Acute respiratory distress Current Visit: Yes Status: Resolved Plan to address problem: -On presentation SPO2 89% on room air -Placed on nonrebreather in the emergency department weaned to NC 2L now weaned to room air (3) Diabetes Current Visit: Yes Status: Chronic Plan to address problem: -07/04 Hemoglobin A1c 7.6 -Continue carb controlled cardiac diet -Continue home antidiabetic regimen (metformin and Amaryl) -Accu-Cheks per primary care physician instructions (4) Hypertension Current Visit: Yes Status: Chronic Qualifiers: Hypertension type: essential hypertension Qualified Code(s): I10 - Essential (primary) hypertension Plan to address problem: -Blood pressure monitor per primary care physician instructions -Continue losartan, labetalol, Lasix (5) Sarcoidosis Current Visit: Yes Status: Chronic Plan to address problem: Follow-up with pulmonary outpatient (6) GERD (gastroesophageal reflux disease) Current Visit: Yes Status: Chronic Plan to address problem: Continue home Pepcid (7) Hypothyroidism Current Visit: Yes Status: Chronic Plan to address problem: Continue home levothyroxine (8) Elevated T4 Current Visit: No Status: chronic Plan to address problem: - 07/05 elevated T4: T4 1.58, TSH 2.8 - Follow-up with primary care physician to repeat thyroid studies Disposition: DC- TO HOME OR SELFCARE Time spent for discharge: 45 Core Measure Documentation - Palliative Care Palliative Care/ Comfort Measures: Not Applicable - Core Measures Any of the following diagnoses?: history only - Heart Failure Discharge Requirements YARELI/ARB for LVSD if EF <40%: Not Applicable Beta leonardo at discharge: Yes Exam - Constitutional Vitals: Temp Pulse Resp BP Pulse Ox 98.5 F 96 H 18 112/73 90 07/06/20 12:00 07/06/20 13:46 07/06/20 12:00 07/06/20 12:00 07/06/20 12:00 General appearance: Present: no acute distress - EENT Eyes: Present: PERRL, EOM intact ENT: hearing intact, clear oral mucosa, dentition normal - Neck Neck: Present: supple, normal ROM - Respiratory Respiratory effort: normal Respiratory: bilateral: CTA - Cardiovascular Rhythm: regular Heart Sounds: Present: S1 & S2. Absent: systolic murmur, diastolic murmur - Extremities Extremities: no ischemia, pulses intact, pulses symmetrical, No edema, normal temperature, normal color, Full ROM Peripheral Pulses: within normal limits - Abdominal General gastrointestinal: Present: soft, non-tender, non-distended, normal bowel sounds - Integumentary Integumentary: Present: clear, warm, dry - Musculoskeletal Musculoskeletal: strength equal bilaterally - Psychiatric Psychiatric: appropriate mood/affect, cooperative - Neurologic Neurologic: CNII-XII intact, no focal deficits, moves all extremities - Allied Health Allied health notes reviewed: nursing, social work, case management Plan Activity: advance as tolerated Diet: low fat, low cholesterol, low salt, diabetic Special Instructions: record daily BP diary, record blood sugar diary Additional Instructions: Present to the nearest emergency department or contact your primary care physician if you experience worsening symptoms. It is recommended that you follow-up with your primary care physician and cardiology within 1 to 2 weeks of discharge. You will be provided with a office number of the dental assistant medical assistant and you need to make an appointment to follow-up. It is recommended that you follow-up with pulmonology within 1 to 2 weeks of discharge for continued care for sarcoidosis. Follow up with: GUILLE PORTILLO MD [Staff Physician] - 7 Days STEVE CHIRINOS MD [Primary Care Provider] - 7 Days EFRAIN OROZCO MD [Staff Physician] - 7 Days Prescriptions: Glimepiride [Amaryl] 4 mg PO BID #60 tab Losartan [Cozaar] 25 mg PO QDAY #30 tablet metFORMIN [Glucophage] 500 mg PO BID #60 tab Furosemide [Lasix TAB] 40 mg PO QDAY #30 tablet Metoprolol [Lopressor TAB] 25 mg PO DAILY #30 tab Famotidine [Pepcid] 20 mg PO BID #60 tablet Albuterol Mdi (or & Nicu Only) [ProAir HFA Inhaler] 2 puff IH QID PRN #8.5 gram PRN Reason: Wheezing Levothyroxine [Synthroid] 88 mcg PO QAM #30 tab
== END 2020-07-06 19:00 | disposition home or self-care (01) ==
LOC: ED 05:04 → 4A 07:13
PROVIDERS: ADMIT Hospitalist; ATTEND Hospitalist
DX: I11.0 Hypertensive heart disease with heart failure (principal); I50.21 Acute systolic (congestive) heart failure; R06.03 Acute respiratory distress; I42.8 Other cardiomyopathies; E11.9 Type 2 diabetes mellitus without complications; R94.6 Abnormal results of thyroid function studies; R00.0 Tachycardia, unspecified; D86.9 Sarcoidosis, unspecified; E03.9 Hypothyroidism, unspecified; K21.9 Gastro-esophageal reflux disease without esophagitis; Z95.818 Presence of other cardiac implants and grafts; Z90.49 Acquired absence of other specified parts of digestive tract; Z90.710 Acquired absence of both cervix and uterus; Z79.84 Long term (current) use of oral hypoglycemic drugs; Z79.899 Other long term (current) drug therapy
CPT/HCPCS: 36415; 36600; 71045; 80048; 80053; 82805; 82962; 83036; 83735; 83880; 84439; 84443; 84484; 85025; 87116; 93005; 94760; 96372; 96374; 96375; 96376; 99285; A9270; G0378; J1650; J1940; J2405; J2765; 87641

== ENCOUNTER 2021-02-17 18:22 | Emergency (ER) | payer BC ==
--- NOTE | 2021-02-17 21:31 | Event Note ---
ED Screening Note Date of service: 02/17/21 Time: 21:30 ED Screening Note: 50-year-old female presents to the ER today for evaluation after fall off a ladder. Patient states that she was about 10 to 12 feet on a ladder trying to do something with the light bulb on her porch when she slipped and fell off the ladder. She states that she did hit her head and there was loss of consciousness. When she woke up she was surrounded by a pola and a lady. She is not sure of how long she had lost consciousness. Complains mainly of headache, facial pain and swelling. She states that she takes a baby aspirin every now in bed with no other blood thinners or antiplatelets. This initial assessment/diagnostic orders/clinical plan/treatment(s) is/are subject to change based on patients health status, clinical progression and re- assessment by fellow clinical providers in the ED. Further treatment and workup at subsequent clinical providers discretion. Patient/guardian urged not to elope from the ED as their condition may be serious if not clinically assessed and managed. Initial orders include: CT head, neck and face
[2021-02-17 21:58] LABS: Basophils # (Auto) 0.1 K/mm3 (0.0-0.1); Basophils % (Auto) 0.6 % (0.0-1.8); Eosinophils % (Auto) 0.1 % (0.0-4.3); Hematocrit 45.3 % (30.3-42.9); Lymphocytes # (Auto) 1.2 K/mm3 (1.2-5.4); Lymphocytes % (Auto) 12.4 % (13.4-35.0); Mean Corpuscular HGB Conc 33 % (30-34); Mean Corpuscular Volume 94 fl (79-97); Monocytes # (Auto) 0.4 K/mm3 (0.0-0.8); Monocytes % (Auto) 4.5 % (0.0-7.3); Platelet Count 228 K/mm3 (140-440); Red Blood Count 4.85 M/mm3 (3.65-5.03); Red Cell Distribution Width 14.9 % (13.2-15.2)
[2021-02-17] MEDS ORDERED: ONDANSETRON 4 MG/2 ML INJ IV ONE (22:12)
[2021-02-17] MEDS ORDERED: MORPHINE 4 MG/1 ML INJ IV ONE (22:12)
[2021-02-17] MEDS ORDERED: CLINDAMYCIN 600 MG/50 mL 600 MG/50 ML BAG IV ONE (22:12)
--- NOTE | 2021-02-17 22:15 | Emergency Department Report ---
ED General Adult HPI - General Chief complaint: Multiple Trauma Stated complaint: FELL OFF LADDER PUI?: No Time Seen by Provider: 02/17/21 22:03 Source: patient, RN notes reviewed, old records reviewed Limitations: Physical Limitation - History of Present Illness Initial comments: The patient was evaluated in the emergency department for symptoms described in the history of present illness. He/she was evaluated in the context of the global COVID-19 pandemic, which necessitated consideration that the patient might be at risk for infection with the virus that causes COVID-19. Institutional protocols and algorithms that pertain to the evaluation of patients at risk for COVID-19 are in a state of rapid change based on information released by regulatory bodies including the CDC and federal and state organizations. These policies and algorithms were followed during the patient's care in the emergency department. Please note that these policies, procedures and recommendations changed on a rapid basis. The patient is a 50-year-old female. She is not known to myself previously. Has a history of obesity, sarcoidosis, nonischemic cardiomyopathy, EF 25 to 30%, diabetes, hypertension, GERD, and hypothyroidism. She has an AICD in situ. She states that she does not take systemic anticoagulation. She presents to the ER after fall from a ladder. The patient states that she was in her usual state of health, when she fell from a ladder, approximately 6 feet. She thinks she hit her head on her jaw. She also believes she hit her right shoulder. The patient believes she lost consciousness after she fell. She complains of headache, left-sided jaw pain, right-sided shoulder pain, and lower back pain. She admits to consuming "a few wine coolers this evening." On primary survey: Airway is intact, patient phonating complete sentences. Obvious left-sided jaw fracture. Breath sounds: Clear to auscultation bilaterally. Circulation: 2+ pulses noted in the bilateral upper and lower extremities. Disability: GCS 15. Intoxicated. No cervical spine tenderness or step-offs. Exposure: No obvious blunt or penetrating injuries otherwise. Secondary survey: Open left-sided jaw fracture. Contusions noted to bilateral lower extremities. -: Sudden Location: head, mouth, back, right, upper extremity Radiation: non-radiation Quality: aching Consistency: intermittent Improves with: rest Worsens with: movement - Related Data Home Medications Medication Instructions Recorded Confirmed Last Taken Ibuprofen [Motrin 800 MG tab] 800 mg PO TID PRN 04/13/20 07/04/20 Unknown Lovastatin 200 mg PO HS 04/13/20 07/04/20 Unknown hydroCHLOROthiazide 12.5 mg PO DAILY 04/13/20 07/04/20 Unknown [Hydrochlorothiazide] methOCARBAMOL [Robaxin TAB] 750 mg PO TID 04/13/20 07/04/20 Unknown Previous Rx's Medication Instructions Recorded Last Taken Type Albuterol Mdi (or & Nicu Only) 2 puff IH QID PRN #8.5 gram 07/06/20 Unknown Rx [ProAir HFA Inhaler] Famotidine [Pepcid] 20 mg PO BID #60 tablet 07/06/20 Unknown Rx Furosemide [Lasix TAB] 40 mg PO QDAY #30 tablet 07/06/20 Unknown Rx Glimepiride [Amaryl] 4 mg PO BID #60 tab 07/06/20 Unknown Rx Levothyroxine [Synthroid] 88 mcg PO QAM #30 tab 07/06/20 Unknown Rx Losartan [Cozaar] 25 mg PO QDAY #30 tablet 07/06/20 Unknown Rx Metoprolol [Lopressor TAB] 25 mg PO DAILY #30 tab 07/06/20 Unknown Rx metFORMIN [Glucophage] 500 mg PO BID #60 tab 07/06/20 Unknown Rx oxyCODONE /ACETAMINOPHEN [Percocet 1 tab PO Q6H PRN tablet 07/06/20 Unknown Rx 5/325 mg] Allergies Allergy/AdvReac Type Severity Reaction Status Date / Time No Known Allergies Allergy Verified 04/12/20 10:17 ED Review of Systems ROS: Stated complaint: FELL OFF LADDER Other details as noted in HPI Constitutional: other (Denies loss of taste and smell). denies: fever Eyes: denies: eye discharge ENT: other (Left-sided jaw pain) Respiratory: shortness of breath (Chronic shortness of breath) Cardiovascular: syncope (Posttraumatic) Gastrointestinal: denies: abdominal pain, hematemesis, melena, hematochezia Musculoskeletal: back pain, joint swelling, arthralgia, myalgia Neurological: headache. denies: numbness Psychiatric: anxiety ED Past Medical Hx - Past Medical History Previous Medical History?: Yes Hx Hypertension: Yes Hx Congestive Heart Failure: Yes Hx Diabetes: Yes Additional medical history: Sarcoidosis - Surgical History Past Surgical History?: Yes Hx Internal Defibrillator: Yes Hx Cholecystectomy: Yes Additional Surgical History: partial hysterectomy 1992 - Social History Smoking Status: Never Smoker Substance Use Type: None - Medications Home Medications: Home Medications Medication Instructions Recorded Confirmed Last Taken Type Ibuprofen [Motrin 800 MG tab] 800 mg PO TID PRN 04/13/20 07/04/20 Unknown History Lovastatin 200 mg PO HS 04/13/20 07/04/20 Unknown History hydroCHLOROthiazide 12.5 mg PO DAILY 04/13/20 07/04/20 Unknown History [Hydrochlorothiazide] methOCARBAMOL [Robaxin TAB] 750 mg PO TID 04/13/20 07/04/20 Unknown History Albuterol Mdi (or & Nicu Only) 2 puff IH QID PRN #8.5 gram 07/06/20 Unknown Rx [ProAir HFA Inhaler] Famotidine [Pepcid] 20 mg PO BID #60 tablet 07/06/20 Unknown Rx Furosemide [Lasix TAB] 40 mg PO QDAY #30 tablet 07/06/20 Unknown Rx Glimepiride [Amaryl] 4 mg PO BID #60 tab 07/06/20 Unknown Rx Levothyroxine [Synthroid] 88 mcg PO QAM #30 tab 07/06/20 Unknown Rx Losartan [Cozaar] 25 mg PO QDAY #30 tablet 07/06/20 Unknown Rx Metoprolol [Lopressor TAB] 25 mg PO DAILY #30 tab 07/06/20 Unknown Rx metFORMIN [Glucophage] 500 mg PO BID #60 tab 07/06/20 Unknown Rx oxyCODONE /ACETAMINOPHEN [Percocet 1 tab PO Q6H PRN tablet 07/06/20 Unknown Rx 5/325 mg] ED Physical Exam - General Limitations: Physical Limitation General appearance: alert, appears intoxicated, obese - Head Head exam: Present: normocephalic, other (Forehead contusion noted) - Eye Eye exam: Present: normal appearance, PERRL, EOMI. Absent: nystagmus - ENT ENT exam: Present: mucous membranes moist, TM's normal bilaterally, normal external ear exam, other (There is no nasal septal hematoma. There is no hemotympanum. Patient phonating in complete sentences.). Absent: normal exam (Obvious left-sided lateral jaw swelling. Open jaw fracture noted on the buccal mucosa.) - Neck Neck exam: Present: normal inspection. Absent: tenderness, meningismus - Respiratory Respiratory exam: Present: normal lung sounds bilaterally. Absent: respiratory distress, wheezes, rales, rhonchi, stridor, decreased breath sounds - Cardiovascular Cardiovascular Exam: Present: normal rhythm, tachycardia, normal heart sounds. Absent: bradycardia, irregular rhythm, systolic murmur, diastolic murmur, rubs, gallop - GI/Abdominal GI/Abdominal exam: Present: soft. Absent: distended, tenderness, guarding, rebound, rigid, pulsatile mass - Extremities Exam Extremities exam: Present: full ROM, tenderness (There is right-sided shoulder tenderness), other (2+ pulses noted in the bilateral upper and lower extremities. There is no palpable cord. negative Homans sign. Muscular compartments are soft. The pelvis is stable.). Absent: normal inspection (Abrasions noted to bilateral lower extremities), calf tenderness - Back Exam Back exam: Present: normal inspection, paraspinal tenderness (Paralumbar tenderness). Absent: tenderness, CVA tenderness (R), CVA tenderness (L) - Neurological Exam Neurological exam: Present: alert, other (No facial droop. Tongue midline. Extraocular movements intact bilaterally. Facial sensation intact to light touch in V1, V2, V3 distribution bilaterally. 5 and a 5 strength in 4 extremities. Sensation intact to light touch in 4 extremities.) - Psychiatric Psychiatric exam: Present: anxious - Skin Skin exam: Present: warm, dry, intact, normal color. Absent: rash ED Course Vital Signs 02/17/21 02/17/21 02/17/21 21:06 23:37 23:38 Temperature 98.9 F 98.9 F Pulse Rate 112 H 104 H Respiratory 18 20 20 Rate Blood Pressure 177/100 Blood Pressure 142/96 [Right] O2 Sat by Pulse 99 99 99 Oximetry 02/18/21 02/18/21 00:21 00:32 Temperature 98.8 F Pulse Rate 100 H Respiratory 20 20 Rate Blood Pressure Blood Pressure 142/100 [Right] O2 Sat by Pulse 99 Oximetry - Reevaluation(s) Reevaluation #1: 02/17/21 22:39 Differential diagnosis, including but not limited to: Closed head injury, cervical spine injury, facial injury, mandibular fracture Alcohol intoxication Assessment and plan: 50-year-old female status post mechanical fall from a ladder. She is currently awake, alert, oriented, GCS of 15, and protecting her airway. She is hemodynamically stable at this time. Obtain CT scan of the brain, facial bones and cervical spine. Obtain appropriate laboratory studies. Obtain x-ray of the chest, x-ray of the pelvis, x-ray of the right shoulder. Start clindamycin for presumed open left-sided jaw fracture. Obtain cardiac EKG. Reassess after initial data points. Patient will likely require transfer to a t rauma service. I have discussed this plan of care with the patient, who verbalized understanding. Reevaluation #2: 02/17/21 23:58 CT scan of the brain shows traumatic subdural without skull fracture or mass- effect. CT scan of the cervical spine negative for acute findings. CT scan of the facial bones demonstrates complex mandibular fracture. Patient requires transfer to a trauma center for higher level of care, as this hospital does not have trauma surgery, OMFS/oral maxillofacial surgery available for consultation. Patient is awake, alert, oriented, protecting her airway and hemodynamically stable. She has provided consent for transfer for services not available at this facility. Patient be transferred to [facility], where the accepting trauma garibay rgeon will be Dr. Orta, the pertinent details of the patient's case were presented to this physician. Reevaluation #3: 02/18/21 00:25 CT scan cervical spine, thoracic spine, lumbar spine, negative for acute traumatic pathology. ED Medical Decision Making - Lab Data Result diagrams: 02/17/21 21:39 02/17/21 21:39 Vital Signs 02/17/21 21:06 Temperature 98.9 F Pulse Rate 112 H Respiratory 18 Rate Blood Pressure 177/100 O2 Sat by Pulse 99 Oximetry Lab Results 02/17/21 Range/Units 21:39 WBC 10.0 (4.5-11.0) K/mm3 RBC 4.85 (3.65-5.03) M/mm3 Hgb 15.0 H (10.1-14.3) gm/dl Hct 45.3 H (30.3-42.9) % MCV 94 (79-97) fl MCH 31 (28-32) pg MCHC 33 (30-34) % RDW 14.9 (13.2-15.2) % Plt Count 228 (140-440) K/mm3 Lymph % (Auto) 12.4 L (13.4-35.0) % Pike % (Auto) 4.5 (0.0-7.3) % Eos % (Auto) 0.1 (0.0-4.3) % Baso % (Auto) 0.6 (0.0-1.8) % Lymph # (Auto) 1.2 (1.2-5.4) K/mm3 Pike # (Auto) 0.4 (0.0-0.8) K/mm3 Eos # (Auto) 0.0 (0.0-0.4) K/mm3 Baso # (Auto) 0.1 (0.0-0.1) K/mm3 Seg Neutrophils % 82.4 H (40.0-70.0) % Seg Neutrophils # 8.2 H (1.8-7.7) K/mm3 Lab Results 02/17/21 02/17/21 Range/Units 21:39 21:39 WBC 10.0 (4.5-11.0) K/mm3 RBC 4.85 (3.65-5.03) M/mm3 Hgb 15.0 H (10.1-14.3) gm/dl Hct 45.3 H (30.3-42.9) % MCV 94 (79-97) fl MCH 31 (28-32) pg MCHC 33 (30-34) % RDW 14.9 (13.2-15.2) % Plt Count 228 (140-440) K/mm3 Lymph % (Auto) 12.4 L (13.4-35.0) % Pike % (Auto) 4.5 (0.0-7.3) % Eos % (Auto) 0.1 (0.0-4.3) % Baso % (Auto) 0.6 (0.0-1.8) % Lymph # (Auto) 1.2 (1.2-5.4) K/mm3 Pike # (Auto) 0.4 (0.0-0.8) K/mm3 Eos # (Auto) 0.0 (0.0-0.4) K/mm3 Baso # (Auto) 0.1 (0.0-0.1) K/mm3 Seg Neutrophils % 82.4 H (40.0-70.0) % Seg Neutrophils # 8.2 H (1.8-7.7) K/mm3 Sodium 132 L (137-145) mmol/L Potassium 4.0 (3.6-5.0) mmol/L Chloride 95.4 L (98-107) mmol/L Carbon Dioxide 19 L (22-30) mmol/L Anion Gap 22 mmol/L BUN 15 (7-17) mg/dL Creatinine 0.9 (0.6-1.2) mg/dL Estimated GFR > 60 ml/min BUN/Creatinine Ratio 17 % Glucose 306 H (65-100) mg/dL Calcium 9.1 (8.4-10.2) mg/dL Total Bilirubin 0.30 (0.1-1.2) mg/dL AST 24 (5-40) units/L ALT 16 (7-56) units/L Alkaline Phosphatase 87 (35-129) units/L Total Protein 7.2 (6.3-8.2) g/dL Albumin 4.2 (3.9-5) g/dL Albumin/Globulin Ratio 1.4 % - EKG Data -: EKG Interpreted by Me EKG shows normal: sinus rhythm Rate: tachycardia - EKG Data 02/17/21 22:41 EKG interpreted 22: 15 Sinus rhythm, normal P wave axis. Rate 104 bpm. Normal axis. QTC 527 ms. T wave abnormalities, poor R wave progression. Motion artifact. This is an abnormal EKG. This is not a STEMI. - Radiology Data Radiology results: pending, report reviewed, image reviewed interpreted by me: X-ray of the right shoulder, interpreted by myself, negative for fracture, dislocation. X-ray of the chest, interpreted by myself, clear lungs, no pneumothorax, ICD in situ. X-ray of the pelvis, interpreted by myself, DJD, no fracture. [facility] [address] [place] [address] XRay Report Signed Patient: LOYDA FLETCHER MR #: [id number] : 1970 Acct:[id number] Age/Sex: 50 / F ADM Date: 02/17/21 Loc: ED Atten ding Dr: Ordering Physician: ERICA BHATIA MD Date of Service: 02/17/21 Procedure(s): XR shoulder 2+V RT Accession Number(s): [id number] cc: ERICA BHATIA MD Fluoro Time In Minutes: RIGHT SHOULDER RADIOGRAPH, 3 VIEWS INDICATION / CLINICAL INFORMATION: fall right shoulder pain COMPARISON: None a vailable. FINDINGS: BONES / JOINT(S): No acute displaced fracture or subluxation. Moderate acromioclavicular osteoarthritis. SOFT TISSUES: No significant abnormality. ADDITIONAL FINDINGS: None. Signer Name: Mya Raman MD Signed: 02/17/2021 10:54 PM Workstation Name: [id number] Transcribed By: [facility] Dictated By: Mya Raman MD Electronically Authenticated By: Mya Raman MD Signed Date/Time: 02/17/212253 DD/ [address] [address] XRay Report Signed Patient: LOYDA FLETCHER MR #: [id number] : 1970 Acct:[id number] Age/Sex: 50 / F ADM Date: 02/17/21 Loc: ED [place] [address] Dr: Ordering Physician: ERICA BHATIA MD Date of Service: 02/17/21 Procedure(s): XR chest 1V ap Accession Number(s): [id number] cc: ERICA BHATIA MD Fluoro Time In Minutes: CHEST 1 VIEW INDICATION / CLINICAL INFORMATION: fall shoulder pain, prim survey. COMPARISON: Chest radiograph 07/04/2020 FINDINGS: SUPPORT DEVICES: Implanted device along the left chest wall with lead terminating centrally at the level of T5/T6. HEART / MEDIASTINUM: No significant abnormality. LUNGS / PLEURA: No significant pulmonary or pleural abnormality. No pneumothorax. ADDITIONAL FINDINGS: No significant additional findings. IMPRESSION: 1. No acute findings. Signer Name: Mya Raman MD Signed: 02/17/2021 10:53 PM Workstation Name: [id number] Transcribed By: [facility] Dictated By: Mya Raman MD Electronically Authenticated By: Mya Raman MD Signed Date/Time: 02/17/212252 [address] [address] XRay Report Signed Patient: LOYDA FLETCHER MR #: [id number] : 1970 Acct:[id number] Age/Sex: 50 / F ADM Date: 02/17/21 Loc: ED Attending Dr: Ordering Physician: ERICA BHATIA MD Date of Service: 02/17/21 Procedure(s): XR pelvis 1-2V Accession Number(s): [id number] cc: ERICA BHATIA MD Fluoro Time In Minutes: AP PELVIS INDICATION / CLINICAL INFORMATION: fall lower back pain. COMPARISON: None available. FINDINGS: No appreciable fracture or other significant abnormality. Signer Name: Deepak Gonzales MD Signed: 02/17/2021 10:59 PM Workstation Name: [id number] Transcribed By: TM Dictated By: Deepak Gonzales MD Electronically Authenticated By: Deepak Gonzales MD Signed Date/Time: 02/17/212258 DD/ 58 [facility] [address] [place] [address] Cat Scan Report Signed Patient: LOYDA FLETCHER MR #: [id number] : 1970 Acct:[id number] Age/Sex: 50 / F ADM Date: 02/17/21 Loc: ED Attendinna [address] Dr: Ordering Physician: AMY OMER Date of Service: 02/17/21 Procedure(s): CT head/brain wo con Accession Number(s): [id number] cc: AMY OMER CT head/brain wo con INDICATION: Fll/facial trauma. TECHNIQUE: Routine CT head without contrast. All CT scans at this location are performed using CT dose reduction for ALARA by means of automated exposure control. COMPARISON: None. FINDINGS: BRAIN / INTRACRANIAL CONTENTS: There is a thin right convexity subdural hematoma measuring up to approximately 4 mm in thickness. There is no significant mass effect on the underlying right cerebral hemisphere. There is no evidence of midline shift. There is no hydrocephalus. The brain parenchyma is unremarkable with normal diggs-white differentiation. ORBITS: No significant abnormality of visualized orbits. SINUSES / MASTOIDS: No significant abnormality of visualized sinuses and mastoid air cells. ADDITIONAL FINDINGS: Soft tissue swelling of the forehead. IMPRESSION: 1. Thin right convexity subdural hematoma. No underlying mass effect or midline shift. The above findings were discussed with Dr. Carrillo at 10:40 PM central time on 02/17/2021. Signer Name: Mya Raman MD Signed: 02/17/2021 11:40 PM Workstation Name: [id number] Transcribed By: C Dictated By: Mya Raman MD Electronically Authenticated By: Mya Raman MD Signed Date/Time: 02/17/212339 DD/ [address] [address] Cat Scan Report Signed Patient: LOYDA FLETCHER MR #: [id number] : 1970 Acct:[id number] Age/Sex: 50 / F ADM Date: 02/17/21 Loc: ED Attending Dr: Ordering Physician: AMY OMER Date of Service: 02/17/21 Procedure(s): CT facial bones wo con Accession Number(s): [id number] cc: AMY OMER CT MAXILLOFACIAL WITHOUT CONTRAST INDICATION / CLINICAL INFORMATION: fall from ladder/facial trauma. TECHNIQUE: All CT scans at this location are performed using CT dose reduction for ALARA by means of automated exposure control. COMPARISON: None available. FINDINGS: FACIAL BONES: There is a mildly comminuted and displaced fracture of the left mandibular ramus. There is also a nondisplaced fracture of the right mandibular body. PARANASAL SINUSES: No significant abnormality. ORBITS: No significant abnormality. VISUALIZED INTRACRANIAL STRUCTURES: Refer to separately dictated CT head. ADDITIONAL FINDIN GS: Extensive soft tissue swelling of the left face overlying the mandible. There is a 2.7 x 2.5 cm rounded density adjacent to the mandibular ramus which likely reflects a small hematoma. Soft tissue swelling of the forehead. IMPRESSION: 1. Mildly comminuted and displaced fracture of the left mandibular ramus, and nondisplaced fracture of the right mandibular body. There is extensive overlying soft tissue swelling and subcutaneous emphysema in the left face, with a small adjacent hematoma. Signer Name: Mya Raman MD Signed: 02/17/2021 11:46 PM Workstation Name: [id number] Transcribed By: [facility] Dictated By: Mya Raman MD Electronically Authenticated By: Mya Raman MD Signed Date/Time: 02/17/212345 DD/ [address] [place] [address] Cat Scan Report Signed Patient: LOYDA FLETCHER MR #: [id number] : 1970 Acct:[id number] Age/Sex: 50 / F ADM Date: 02/17/21 Loc: ED Attending Dr: Ordering Physician: AMY OMER Date of Service: 02/17/21 Procedure(s): CT cervical spine wo con Accession Number(s): [id number] cc: AMY OMER CT CERVICAL SPINE WITHOUT CONTRAST INDICATION / CLINICAL INFORMATION: fall/facial trauma. TECHNIQUE: Axial CT images were obtained through the cervical spine. Sagittal and coronal reformatted images were produced. All CT scans at this location are performed using CT dose reduction for ALARA by means of automated exposure control. COMPARISON: None available. FINDINGS: VERTEBRAE: No significant abnormality. No acute displaced fracture. ALIGNMENT: No significant abnormality. DISC SPACES: No significant abnormality. FACET JOINTS: No significant abnormality. CRANIOCERVICAL JUNCTION:No significant abnormality. SPINAL CANAL: No significant abnormality. PARASPINAL SOFT TISSUES: No significant abnormality. ADDITIONAL FINDINGS: Refer to separately dictated CT maxillofacial and CT head for respective findings. LUNG APICES: No significant abnormality of visualized lungs. IMPRESSION: 1. No fracture in the cervical spine. Signer Name: Mya Raman MD Signed: 02/17/2021 11:49 PM Workstation Name: [id number] Transcribed By: [facility] Dictated By: Mya Raman MD Electronically Authenticated By: Mya Raman MD Signed Date/Time: 02/17/212348 DD/ 2346 Critical Care Time: Yes Critical care time in (mins) excluding proc time.: 35 Critical care attestation.: If time is entered above; I have spent that time in minutes in the direct care of this critically ill patient, excluding procedure time. ED Disposition Clinical Impression: Hyperglycemia Jaw fracture Qualifiers: Encounter type: initial encounter Closed head injury Qualifiers: Encounter type: initial encounter Qualified Code(s): S09.90XA - Unspecified injury of head, initial encounter Alcohol intoxication Qualifiers: Complication of substance-induced condition: uncomplicated Qualified Code(s): F10.920 - Alcohol use, unspecified with intoxication, uncomplicated Right shoulder pain Qualifiers: Chronicity: acute Qualified Code(s): M25.511 - Pain in right shoulder Back pain Qualifiers: Back pain location: low back pain Chronicity: acute Back pain laterality: unspecified Sciatica presence: without sciatica Qualified Code(s): M54.5 - Low back pain Fall Qualifiers: Encounter type: initial encounter Qualified Code(s): W19.XXXA - Unspecified fall, initial encounter Traumatic subdural hematoma Qualifiers: Encounter type: initial encounter Loss of consciousness presence/duration: with LOC of 30 min or less Qualified Code(s): S06.5X1A - Traumatic subdural hemorrhage with loss of consciousness of 30 minutes or less, initial encounter Disposition: DC/TX-02 [facility]RT-TRM GEN HOSP IP Is pt being admited?: No Does the pt Need Aspirin: No Condition: Serious Referrals: PRIMARY CARE, [Primary Care Provider] - 3-5 Days
[2021-02-17 22:49] LABS: Alanine Aminotransferase 16 units/L (7-56); Albumin 4.2 g/dL (3.9-5); BUN/Creatinine Ratio 17; Blood Urea Nitrogen 15 mg/dL (7-17); Calcium 9.1 mg/dL (8.4-10.2); Hemolysis Index 24
[2021-02-17] MEDS ORDERED: INSULIN REGULAR, HUMAN 100 UNITS/1 ML IV ONE (22:56)
--- NOTE | 2021-02-17 22:57 | XRay Report ---
CHEST 1 VIEW INDICATION / CLINICAL INFORMATION: fall shoulder pain, prim survey. COMPARISON: Chest radiograph 07/04/2020 FINDINGS: SUPPORT DEVICES: Implanted device along the left chest wall with lead terminating centrally at the [place] of T5/T6. HEART / MEDIASTINUM: No significant abnormality. LUNGS / PLEURA: No significant pulmonary or pleural abnormality. No pneumothorax. ADDITIONAL FINDINGS: No significant additional findings. IMPRESSION: 1. No acute findings. Signer Name: Mya Raman MD Signed: 02/17/2021 10:53 PM Workstation Name: [id number]
--- NOTE | 2021-02-17 22:58 | XRay Report ---
RIGHT SHOULDER RADIOGRAPH, 3 VIEWS INDICATION / CLINICAL INFORMATION: fall right shoulder pain COMPARISON: None available. FINDINGS: BONES / JOINT(S): No acute displaced fracture or subluxation. Moderate acromioclavicular osteoarthrit is. SOFT TISSUES: No significant abnormality. ADDITIONAL FINDINGS: None. Signer Name: Mya Raman MD Signed: 02/17/2021 10:54 PM Workstation Name: [id number]
--- NOTE | 2021-02-17 23:04 | XRay Report ---
AP PELVIS INDICATION / CLINICAL INFORMATION: fall lower back pain. COMPARISON: None available. FINDINGS: No appreciable fracture or other significant abnormality. Signer Name: Deepak Gonzales MD Signed: 02/17/2021 10:59 PM Workstation Name: [id number]
[2021-02-17 23:39] LABS: INR 1.07 (0.87-1.13)
[2021-02-17] MEDS ORDERED: levETIRAcetam 1000 MG/NS 0.75% 1,000 MG/100 ML BAG IV ONE (23:44)
--- NOTE | 2021-02-17 23:45 | Cat Scan Report ---
CT head/brain wo con INDICATION: Fll/facial trauma. TECHNIQUE: Routine CT head without contrast. All CT scans at this location are performed using CT dos e reduction for ALARA by means of automated exposure control. COMPARISON: None. FINDINGS: BRAIN / INTRACRANIAL CONTENTS: There is a thin right convexity subdural hematoma measuring up to appr oximately 4 mm in thickness. There is no significant mass effect on the underlying right cerebral hem isphere. There is no evidence of midline shift. There is no hydrocephalus. The brain parenchyma is un remarkable with normal diggs-white differentiation. ORBITS: No significant abnormality of visualized orbits. SINUSES / MASTOIDS: No significant abnormality of visualized sinuses and mastoid air cells. ADDITIONAL FINDINGS: Soft tissue swelling of the forehead. IMPRESSION: 1. Thin right convexity subdural hematoma. No underlying mass effect or midline shift. The above findings were discussed with Dr. Carrillo at 10:40 PM central time on 02/17/2021. Signer Name: Mya Raman MD Signed: 02/17/2021 11:40 PM Workstation Name: [id number]
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
--- NOTE | 2021-02-17 23:57 | Cat Scan Report ---
CT THORACIC SPINE WITHOUT CONTRAST INDICATION / CLINICAL INFORMATION: fall back pain. TECHNIQUE: Axial CT images were obtained through the thoracic spine. Sagittal and coronal reformatted images wer e produced. All CT scans at this location are performed using CT dose reduction for ALARA by means of automated exposure control. COMPARISON: None available. FINDINGS: VERTEBRAE: No significant abnormality. No acute displaced fracture. ALIGNMENT: No significant abnormality. DISC SPACES: No significant abnormality. FACET and COSTOVERTEBRAL JOINTS: No significant abnormality. CERVICOTHORACIC JUNCTION:No significant abnormality. SPINAL CANAL: No significant abnormality. PARASPINAL SOFT TISSUES: No significant abnormality. ADDITIONAL FINDINGS: None. LUNGS: No significant abnormality of visualized lungs. IMPRESSION: 1. No fracture identified in the thoracic spine. Signer Name: Mya Raman MD Signed: 02/17/2021 11:52 PM Workstation Name: [id number]
--- NOTE | 2021-02-18 | Cat Scan Report ---
CT LUMBAR SPINE WITHOUT CONTRAST INDICATION / CLINICAL INFORMATION: fall back pain. TECHNIQUE: Axial CT images were obtained through the lumbar spine. Sagittal and coronal reformatted images were produced. All CT scans at this location are performed using CT dose reduction for ALARA by means of a utomated exposure control. COMPARISON: None available. FINDINGS: VERTEBRAE: No significant abnormality. No acute displaced fracture. ALIGNMENT: No significant abnormality. DISC SPACES: No significant abnormality. FACET JOINTS: No significant abnormality. SPINAL CANAL: No significant abnormality. SACRUM:No significant abnormality of the visualized sacrum. PARASPINAL SOFT TISSUES: No significant abnormality. ADDITIONAL FINDINGS: None. IMPRESSION: 1. No fracture in the lumbar spine. Signer Name: Mya Raman MD Signed: 02/17/2021 11:56 PM Workstation Name: [id number]
[2021-02-18 00:33] VITALS: BP 142/100
[2021-02-18] MEDS ORDERED: METOCLOPRAMIDE 10 MG/2 ML INJ IV ONE (00:40)
[2021-02-18] MEDS ORDERED: METOCLOPRAMIDE 10 MG/2 ML INJ ONE (00:43)
--- NOTE | 2021-02-20 12:51 | Electrocardiograph Report ---
[facility] Test Date: 2021-02-17 Test Time: 22:15:50 Pat Name: LOYDA FLETCHER Department: Room: Gender: F Babbitter: DARWIN : 1970 Requested By: ERICA BHATIA Order Number: [id number] Reading MD: Gracie Resendiz Measurements Intervals [place] Rate: 104 P: 74 AK: 158 QRS: 15 QRSD: 88 T: 70 QT: 400 QTc: 527 Interpretive Statements Sinus tachycardia Nonspecific T abnrm, anterolateral leads Prolonged QT interval No previous ECG available for comparison Electronically Signed On 02-20-2021 12:51:30 EDT by Gracie Resendiz
== END 2021-02-18 01:00 | disposition short-term general hospital (02) ==
LOC: ED 18:22
DX: S02.642A Fracture of ramus of left mandible, initial encounter for closed fracture (principal); S06.5X9A Traumatic subdural hemorrhage with loss of consciousness of unspecified duration, initial encounter; E11.65 Type 2 diabetes mellitus with hyperglycemia; M25.511 Pain in right shoulder; M54.6 Pain in thoracic spine; F10.129 Alcohol abuse with intoxication, unspecified; I11.0 Hypertensive heart disease with heart failure; I50.9 Heart failure, unspecified; Z98.890 Other specified postprocedural states; Z79.1 Long term (current) use of non-steroidal anti-inflammatories (NSAID); Z79.899 Other long term (current) drug therapy; W11.XXXA Fall on and from ladder, initial encounter; Y93.89 Activity, other specified; Y92.89 Other specified places as the place of occurrence of the external cause; Y99.8 Other external cause status
CPT/HCPCS: 36415; 70450; 70486; 71045; 72125; 72128; 72131; 72170; 73030; 80053; 82550; 83735; 85025; 85610; 93005; 96365; 96368; 96375; 99285; J1953; J2270; J2405; J2765; 80320; G0480; J1815

== ENCOUNTER 2021-07-05 08:19 | Emergency (ER) | payer OTHER, BC ==
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
[2021-07-05 09:27] LABS: Bacteria,Urine 1+ /HPF (Negative); Bilirubin,Urine NEG (Negative); Blood,Urine MOD (Negative); Color,Urine Yellow (Yellow); Mucus,Urine FEW /HPF; Urobilinogen,Urine < 2.0 mg/dL (<2.0)
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
[2021-07-05] MEDS ORDERED: ONDANSETRON 4 MG ODT TAB PO ONE (11:42)
[2021-07-05] MEDS ORDERED: CYCLOBENZAPRINE 10 MG TAB PO ONE (11:42)
[2021-07-05] MEDS ORDERED: HYDROcodone/ACETAMINOPHEN 10-325MG TAB PO ONE (11:42)
[2021-07-05 11:44] LABS: Hematocrit 39.7 % (30.3-42.9); Hemoglobin 12.7 gm/dl (10.1-14.3); Mean Corpuscular HGB Conc 32 % (30-34); Mean Corpuscular Volume 90 fl (79-97); Platelet Count 230 K/mm3 (140-440); Red Cell Distribution Width 15.5 % (13.2-15.2)
[2021-07-05 11:45] LABS: BUN/Creatinine Ratio 17; Blood Urea Nitrogen 15 mg/dL (7-17); Calcium 9.6 mg/dL (8.4-10.2); Hemolysis Index 7
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
[2021-07-05 13:30] VITALS: BP 139/85
[2021-07-05 20:04] LABS: Total Cells Counted 100
[2021-07-05 20:05] LABS: Large Platelets 2+; Platelet Estimate Consistent w Auto
--- NOTE | 2021-07-06 13:30 | Electrocardiograph Report ---
[facility] Test Date: 2021-07-05 Test Time: 08:52:08 Pat Name: LOYDA FLETCHER Department: Room: Gender: F Certified Ophthalmic Medical Technician: BRITT : 1970 Requested By: ADELA HUERTA Order Number: [id number] Reading MD: Gracie Resendiz Measurements Intervals [place] Rate: 100 P: 52 CO: 156 QRS: 46 QRSD: 79 T: 67 QT: 391 QTc: 505 Interpretive Statements Sinus tachycardia Probable left atrial enlargement Compared to ECG 02/17/2021 22:15:50 No significant change Electronically Signed On 07-06-2021 13:30:28 EDT by Gracie Resendiz
== END 2021-07-05 13:45 | disposition home or self-care (01) ==
LOC: ED 08:19
DX: T14.8XXA Other injury of unspecified body region, initial encounter (principal); M79.18 Myalgia, other site; E11.65 Type 2 diabetes mellitus with hyperglycemia; I11.0 Hypertensive heart disease with heart failure; D86.9 Sarcoidosis, unspecified; Z98.890 Other specified postprocedural states; V89.2XXA Person injured in unspecified motor-vehicle accident, traffic, initial encounter; Y93.89 Activity, other specified; Y92.89 Other specified places as the place of occurrence of the external cause; Y99.8 Other external cause status
CPT/HCPCS: 36415; 71046; 72040; 80048; 81001; 84484; 85007; 85025; 93005; 99284; Q0162

== ENCOUNTER 2022-02-04 15:03 | Emergency (ER) | payer BC ==
[2022-02-04 16:25] VITALS: BP 114/76
--- NOTE | 2022-02-05 11:32 | Electrocardiograph Report ---
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
== END 2022-02-04 19:35 | disposition left against medical advice (07) ==
LOC: ED 15:03
DX: R42 Dizziness and giddiness (principal); Z53.21 Procedure and treatment not carried out due to patient leaving prior to being seen by health care provider
CPT/HCPCS: 93005

== ENCOUNTER 2022-02-05 08:08 | Emergency (ER) | payer BC ==
[2022-02-05 09:13] LABS: Hematocrit 42.5 % (30.3-42.9); Hemoglobin 14.8 gm/dl (10.1-14.3); Mean Corpuscular HGB Conc 35 % (30-34); Mean Corpuscular Volume 86 fl (79-97); Platelet Count 271 K/mm3 (140-440); Red Blood Count 4.97 M/mm3 (3.65-5.03); Red Cell Distribution Width 16.6 % (13.2-15.2)
[2022-02-05 09:31] LABS: Albumin 4.9 g/dL (3.9-5); Calcium 10.2 mg/dL (8.4-10.2)
[2022-02-05] MEDS ORDERED: SODIUM CHLORIDE 0.9% 1000 ML 1,000 ML IV ONE ×2 (10:04)
--- NOTE | 2022-02-05 10:11 | XRay Report ---
CHEST 2 VIEWS INDICATION / CLINICAL INFORMATION: chest pain. FINDINGS: SUPPORT DEVICES: None. HEART / MEDIASTINUM: No significant abnormality. LUNGS / PLEURA: No significant pulmonary or pleural abnormality. No pneumothorax. ADDITIONAL FINDINGS: No significant additional findings. IMPRESSION: 1. No acute findings. Signer Name: David Alcantara MD Signed: 02/05/2022 10:07 AM Workstation Name: [id number]
--- NOTE | 2022-02-05 10:18 | Emergency Department Report ---
HPI - General Chief Complaint: Dizziness Time Seen by Provider: 02/05/22 09:46 - HPI HPI: Room 23 The patient is a 51-year-old female present with a chief complaint of lightheadedness. The patient states yesterday she developed cramps in both of her lower extremities and lightheadedness prompting her to leave work. The patient states she went home and began having multiple bouts of diarrhea and continued to have lightheadedness. Patient admitted to nausea but denies vomiting. Patient denies any recent antibiotic use. Patient denies history of fever. The patient states she had a similar episode approximately 1 month ago ED Past Medical Hx - Past Medical History Previous Medical History?: Yes Hx Hypertension: Yes Hx Congestive Heart Failure: Yes Hx Diabetes: Yes Additional medical history: Sarcoidosis, hypothyroidism - Surgical History Past Surgical History?: Yes Hx Internal Defibrillator: Yes Hx Cholecystectomy: Yes Additional Surgical History: partial hysterectomy 1992, craniotomy secondary to ICH - Family History Family history: no significant - Social History Smoking Status: Never Smoker Substance Use Type: None (Denies illicit drug use) - Medications Home Medications: Home Medications Medication Instructions Recorded Confirmed Last Taken Type Lovastatin 200 mg PO HS 04/13/20 07/04/20 Unknown History hydroCHLOROthiazide 12.5 mg PO DAILY 04/13/20 07/04/20 Unknown History [Hydrochlorothiazide] Albuterol Mdi (or & Nicu Only) 2 puff IH QID PRN #8.5 gram 07/06/20 Unknown Rx [ProAir HFA Inhaler] Famotidine [Pepcid] 20 mg PO BID #60 tablet 07/06/20 Unknown Rx Furosemide [Lasix TAB] 40 mg PO QDAY #30 tablet 07/06/20 Unknown Rx Glimepiride [Amaryl] 4 mg PO BID #60 tab 07/06/20 Unknown Rx Levothyroxine [Synthroid] 88 mcg PO QAM #30 tab 07/06/20 Unknown Rx Losartan [Cozaar] 25 mg PO QDAY #30 tablet 07/06/20 Unknown Rx Metoprolol [Lopressor TAB] 25 mg PO DAILY #30 tab 07/06/20 Unknown Rx metFORMIN [Glucophage] 500 mg PO BID #60 tab 07/06/20 Unknown Rx Cyclobenzaprine [Flexeril] 10 mg PO TID PRN #10 tablet 07/05/21 Unknown Rx traMADoL [Ultram] 50 mg PO Q6HR PRN #10 tablet 07/05/21 Unknown Rx Cyclobenzaprine [Flexeril] 10 mg PO TID PRN #10 02/05/22 Unknown Rx Diphenoxylate/Atropine [Lomotil] 2 tab PO QID PRN #30 02/05/22 Unknown Rx Ondansetron [Zofran ODT TAB] 8 mg PO Q8HR #20 tab.rapdis 02/05/22 Unknown Rx ED Review of Systems ROS: Stated complaint: LIGHT HEADED/LEG CRAMPS Other details as noted in HPI Constitutional: denies: fever Eyes: denies: eye pain ENT: denies: throat pain Respiratory: no symptoms reported Cardiovascular: denies: chest pain Endocrine: no symptoms reported Gastrointestinal: nausea, diarrhea. denies: vomiting Genitourinary: denies: dysuria Musculoskeletal: denies: back pain Neurological: other (Lightheaded). denies: headache Physical Exam - Physical Exam Vital Signs: Vital Signs 02/05/22 08:13 Temperature 97.5 F L Pulse Rate 99 H Respiratory 18 Rate Blood Pressure 114/76 O2 Sat by Pulse 99 Oximetry Physical Exam: GENERAL: The patient is well-developed well-nourished female lying on stretcher not appearing to be in acute distress. [] HEENT: Normocephalic. Atraumatic. Extraocular motions are intact. Patient has moist mucous membranes. No nystagmus noted NECK: Supple. No meningitic signs are noted. Trachea midline CHEST/LUNGS: Clear to auscultation. There is no respiratory distress noted. HEART/CARDIOVASCULAR: Regular. There is no tachycardia. There is no gallop rub or murmur. ABDOMEN: Abdomen is soft, nontender. Patient has normal bowel sounds. There is no abdominal distention. SKIN: There is no rash. There is no edema. There is no diaphoresis. NEURO: The patient is awake, alert, and oriented. The patient is cooperative. The patient has no focal neurologic deficits. The patient has normal speech. Cranial nerves II through XII grossly intact. GCS 15 MUSCULOSKELETAL: There is no evidence of acute injury. ED Course Vital Signs 02/05/22 08:13 Temperature 97.5 F L Pulse Rate 99 H Respiratory 18 Rate Blood Pressure 114/76 O2 Sat by Pulse 99 Oximetry ED Medical Decision Making - Lab Data Result diagrams: 02/05/22 08:55 02/05/22 08:55 - Radiology Data Radiology results: report reviewed (Bilateral lower extremity Doppler, chest x- ray), image reviewed (Bilateral lower extremity Doppler, chest x-ray) interpreted by me: Chest x-ray-no definite focal infiltrates, no pneumothorax [address] [address] Vascular Lab Report Signed Patient: LOYDA FLETCHER MR #: [id number] : 1970 Acct:[id number] Age/Sex: 51 / F ADM Date: 02/05/22 Loc: ED Attending Dr: Ordering Physician: TENNILLE DOUGLAS MD Date of Service: 02/05/22 Procedure(s): VL venous duplex LE BILAT Accession Number(s): [id number] cc: TENNILLE DOUGLAS MD DUPLEX DOPPLER LOWER EXTREMITY VEINS, BILATERAL INDICATION / CLINICAL INFORMATION: Pain. TECHNIQUE: Duplex doppler imaging was performed through the veins of both lower extremities using venous compression and other maneuvers. COMPARISON: None available. FINDINGS: RIGHT COMMON FEMORAL VEIN: Negative. RIGHT FEMORAL VEIN: Negative. RIGHT POPLITEAL VEIN: Negative. RIGHT CALF VEINS: Negative. LEFT COMMON FEMORAL VEIN: Negative. LEFT FEMORAL VEIN: Negative. LEFT POPLITEAL VEIN: Negative. LEFT CALF VEINS: Negative. ADDITIONAL FINDINGS: None. IMPRESSION: 1. No sonographic evidence for DVT in either lower extremity. Signer Name: Nir Karimi MD Signed: 02/05/2022 11:22 AM Workstation Name: [id number] Transcribed By: DB Dictated By: NIR KARIMI MD Electronically Authenticated By: NIR KARIMI MD Signed Date/Time: 02/05/22 1122 DD/DT: 1121 TD/TT: [address] [address] XRay Report Signed Patient: LOYDA FLETCHER MR #: [id number] : 1970 Acct:[id number] Age/Sex: 51 / F ADM Date: 02/05/22 Loc: ED Attending Dr: Ordering Physician: SONU MCCONNELL Date of Service: 02/05/22 Procedure(s): XR chest routine 2V Accession Number(s): [id number] cc: SONU MCCONNELL Fluoro Time In Minutes: CHEST 2 VIEWS INDICATION / CLINICAL INFORMATION: chest pain. FINDINGS: SUPPORT DEVICES: None. HEART / MEDIASTINUM: No significant abnormality. LUNGS / PLEURA: No significant pulmonary or pleural abnormality. No pneumothorax. ADDITIONAL FINDINGS: No significant additional findings. IMPRESSION: 1. No acute findings. Signer Name: David Alcantara MD Signed: 02/05/2022 10:07 AM Workstation Name: [id number] Transcribed By: BC Dictated By: David Alcantara MD Electronically Authenticated By: David Alcantara MD Signed Date/Time: 02/05/221006 DD/ 06 TD/TT: - Differential Diagnosis Enteritis, dehydration, symptomatic anemia, DVT, myalgia Critical care attestation.: If time is entered above; I have spent that time in minutes in the direct care of this critically ill patient, excluding procedure time. ED Disposition Clinical Impression: Diarrhea, Dehydration Disposition: 01 HOME / SELF CARE / HOMELESS Is pt being admited?: No Does the pt Need Aspirin: No Condition: Stable Instructions: Diarrhea, Adult, [id number] Additional Instructions: Return to the emergency department should you develop worsening symptoms, inability to tolerate food or liquids, high fever or any other concerns Prescriptions: Cyclobenzaprine [Flexeril] 10 mg PO TID PRN #10 PRN Reason: Muscle Spasm Diphenoxylate/Atropine [Lomotil] 2 tab PO QID PRN #30 PRN Reason: Diarrhea Ondansetron [Zofran ODT TAB] 8 mg PO Q8HR #20 tab.nicolledis Referrals: PRIMARY CARE, [Primary Care Provider] - 2-3 Days Time of Disposition: 14:04
--- NOTE | 2022-02-05 11:26 | Vascular Lab Report ---
DUPLEX DOPPLER LOWER EXTREMITY VEINS, BILATERAL INDICATION / CLINICAL INFORMATION: Pain. TECHNIQUE: Duplex doppler imaging was performed through the veins of both lower extremities using neris ous compression and other maneuvers. COMPARISON: None available. FINDINGS: RIGHT COMMON FEMORAL VEIN: Negative. RIGHT FEMORAL VEIN: Negative. RIGHT POPLITEAL VEIN: Negative. RIGHT CALF VEINS: Negative. LEFT COMMON FEMORAL VEIN: Negative. LEFT FEMORAL VEIN: Negative. LEFT POPLITEAL VEIN: Negative. LEFT CALF VEINS: Negative. ADDITIONAL FINDINGS: None. IMPRESSION: 1. No sonographic evidence for DVT in either lower extremity. Signer Name: Nir Karimi MD Signed: 02/05/2022 11:22 AM Workstation Name: [id number]
--- NOTE | 2022-02-05 11:35 | Electrocardiograph Report ---
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
--- NOTE | 2022-02-05 12:03 | Cat Scan Report ---
CT head/brain wo con INDICATION / CLINICAL INFORMATION: 51 years Female; dizziness. TECHNIQUE: Routine CT head without contrast. All CT scans at this location are performed using CT dos e reduction for ALARA by means of automated exposure control. COMPARISON: FINDINGS: BRAIN / INTRACRANIAL CONTENTS: No acute hemorrhage, mass effect, midline shift, hydrocephalus, or acu te, large territorial infarct. No signs of significant atrophy or chronic infarct. No significant whi te matter abnormality seen. CRANIOCERVICAL JUNCTION: No significant abnormality. ORBITS: No significant abnormality of visualized orbits. SINUSES / MASTOIDS: Mild to moderate mucosal thickening in the mastoids. No coalescence of air cells seen. ADDITIONAL FINDINGS: None. IMPRESSION: 1. No focal mass, hemorrhage, hydrocephalus, or acute, large territorial infarct. Signer Name: Jun Stevenson MD, III Signed: 02/05/2022 11:57 AM Workstation Name: [id number]
[2022-02-05] MEDS ORDERED: BUTALB/ACETAMINOPHEN/CAFFEINE TAB PO ONE (13:06)
[2022-02-05 14:04] LABS: Bilirubin,Urine NEG (Negative); Blood,Urine NEG (Negative); Color,Urine Yellow (Yellow); Hyaline Casts,Urine 7 /LPF; Mucus,Urine FEW /HPF; Protein,Urine <15 mg/dL mg/dL (Negative); Urobilinogen,Urine < 2.0 mg/dL (<2.0); WBC,Urine < 1.0 /HPF (0.0-6.0)
[2022-02-05 14:40] VITALS: BP 116/89
--- NOTE | 2022-02-06 10:58 | Electrocardiograph Report ---
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
== END 2022-02-05 15:25 | disposition home or self-care (01) ==
LOC: ED 08:08
DX: R19.7 Diarrhea, unspecified (principal); E86.0 Dehydration; I10 Essential (primary) hypertension; E11.8 Type 2 diabetes mellitus with unspecified complications
CPT/HCPCS: 36415; 70450; 71046; 80053; 81001; 82550; 83690; 84484; 85027; 93005; 93970; 96360; 99285; J7030; 99284